=== PATIENT | male | born 1950 | race African-American/Black ===

== ENCOUNTER 2021-04-18 14:52 | Inpatient (IN) | payer MEDICAID, MEDICARE, OTHER ==
[~2021-04-18] VITALS: Ht 175.3 cm; Wt 103.4 kg
[~2021-04-18 14:52] MED LIST: ATOR20TA MT; BENA20TA77; COR6; FURO-151 MT; GLIP10TA10 MT; METF-817
[2021-04-18] MEDS ORDERED: VANCOMYCIN 1G PREMIX 200 ML IV ONE (15:45)
[2021-04-18] MEDS ORDERED: SODIUM CHLORIDE 0.9% 1000ML BAG (SEPSIS BOLUS) IV ONE (15:45)
[2021-04-18] MEDS ORDERED: PIPERACILLIN/TAZ 3.375G PREMIX 50 ML IV ONE (15:45)
[2021-04-18] MEDS ORDERED: VANCOMYCIN 1GM PMX (XELLIA) 200 ML IV NR (16:00)
[2021-04-18 16:28] LABS: MEAN CORPUSCULAR HEMOGLOBIN 26.6 pg (28.0-32.0); MEAN CORPUSCULAR VOLUME 83.2 fL (80.0-94.0); MEAN PLATELET VOLUME 7.7 fl (7.4-10.4); PLATELET 407 x1000/uL (130-400); RED BLOOD CELL COUNT 2.28 mill/uL (4.7-6.1); RED CELL DISTRIBUTION WIDTH 14.8 % (11.6-14.6)
[2021-04-18 16:31] LABS: HEMOGLOBIN. 6.1 g/dL (14.0-18.0)
[2021-04-18 16:34] LABS: CHLORIDE 98 mEq/L (98-107)
[2021-04-18 16:51] LABS: PLATELET ESTIMATE INCREASED
[2021-04-18] MEDS ORDERED: ADENOSINE 3 MG/ML 2ML VIAL IV ONE ×3 (17:00)
[2021-04-18] MEDS ORDERED: KCL 20MEQ/100ML PREMIX 100 ML IV ONE (17:00)
[2021-04-18] MEDS ORDERED: MIDAZOLAM HCL 2 MG/2 ML VIAL IV ONE (17:15)
[2021-04-18] MEDS ORDERED: ADENOSINE 3 MG/ML 2ML VIAL IV NR ×2 (17:30→17:37)
[2021-04-18] MEDS ORDERED: MIDAZOLAM HCL 2 MG/2 ML VIAL IV NR (17:30)
[2021-04-18 17:39] LABS: BG BASE EXCESS -3.1 mmol/L (-2.0-2.0); BG CARBOXYHEMOGLOBIN 1.3 % (0.5-1.5); BG DEOXYHEMOGLOBIN 3.2 % (0.0-5.0); BG FRACTION INSPIRED OXYGEN 21; BG HCO3 ACT 20.3 mmol/L (22.0-26.0); BG METHEMOGLOBIN 0.3 % (0.0-1.5); BG OXYGEN SATURATION 96.7 % (92.0-98.5); BG OXYHEMOGLOBIN 95.2 % (94.0-97.0); BG PCO2 29.2 mmHg (35.0-45.0); BG PO2 92.1 mmHg (75.0-100.0); BG SAMPLE SITE RIGHT RADIAL; BG TOTAL HEMOGLOBIN 6.7 g/dL (12.0-18.0); BG VENT MODE ROOM AIR
[2021-04-18 18:46] LABS: MEAN PLATELET VOLUME 7.7 fl (7.4-10.4); PLATELET 457 x1000/uL (130-400); RED BLOOD CELL COUNT 2.52 mill/uL (4.7-6.1)
[2021-04-18 18:50] LABS: HEMATOCRIT. 20.9 % (42.0-52.0); HEMOGLOBIN. 6.8 g/dL (14.0-18.0)
[2021-04-18 19:05] LABS: PLATELET ESTIMATE INCREASED
[2021-04-18 19:42] LABS: CLARITY URINE CLEAR (CLEAR); COLOR URINE YELLOW (YELLOW); KETONES URINE NEGATIVE (NEGATIVE); LEUKOCYTE ESTERASE URINE 2+ (NEGATIVE); NITRITE URINE NEGATIVE (NEGATIVE); OCCULT BLOOD URINE 1+ (NEGATIVE); PROTEIN URINE TRACE (NEGATIVE); SPECIFIC GRAVITY URINE 1.015 (1.005-1.030); UROBILINOGEN URINE 0.2 E.U./dL (0.2-1.0)
[2021-04-18 22:00] VITALS: BP 129/65
[2021-04-18 22:13] LABS: CHLORIDE 101 mEq/L (98-107)
[2021-04-19] VITALS (13 sets, daily range): BP systolic 97–116; BP diastolic 54–83
[2021-04-19] MEDS ORDERED: DEXTROSE 50% WATER 50ML SYRINGE IV PRN
[2021-04-19] MEDS ORDERED: METOPROLOL TARTRATE 50MG TABLET PO SCH
[2021-04-19] MEDS ORDERED: SODIUM CHL 0.45% + KCL 20MEQ/L 1,000 ML IV SCH (01:00)
[2021-04-19 01:46] LABS: HEMATOCRIT. 23.1 % (42.0-52.0); HEMOGLOBIN. 7.7 g/dL (14.0-18.0); MEAN CORPUSCULAR HEMOGLOBIN 27.3 pg (28.0-32.0); MEAN CORPUSCULAR VOLUME 81.8 fL (80.0-94.0); MEAN PLATELET VOLUME 7.8 fl (7.4-10.4); PLATELET 443 x1000/uL (130-400); RED BLOOD CELL COUNT 2.82 mill/uL (4.7-6.1); RED CELL DISTRIBUTION WIDTH 14.6 % (11.6-14.6)
[2021-04-19] MEDS ORDERED: POTASSIUM CHLORIDE INJ 40 MEQ in DEXT 5% WATER 250 ML IV SCH (02:00)
[2021-04-19] MEDS: PIPERACILLIN/TAZOBACTAM 3.375 G in DEXTROSE 5% WATER 50 ML IV SCH ×3 (05:13→21:20)
[2021-04-19] MEDS: BLOOD SUGAR DIAGNOSTIC STRIP TEST SCH ×4 (06:50→21:09)
[2021-04-19 07:06] LABS: BASOPHILS % 0.4 % (0.0-2.0); EOSINOPHILS % 0.1 % (0.0-5.0); HEMATOCRIT. 22.8 % (42.0-52.0); HEMOGLOBIN. 7.6 g/dL (14.0-18.0); MEAN CORPUSCULAR HEMOGLOBIN 27.5 pg (28.0-32.0); MEAN CORPUSCULAR VOLUME 82.1 fL (80.0-94.0); MEAN PLATELET VOLUME 7.8 fl (7.4-10.4); MONOCYTES % 2.5 % (2.0-8.0); PLATELET 454 x1000/uL (130-400); RED BLOOD CELL COUNT 2.78 mill/uL (4.7-6.1); RED CELL DISTRIBUTION WIDTH 14.4 % (11.6-14.6)
[2021-04-19] MEDS ORDERED: INSULIN LISPRO 100 UNITS/ML SUBCUT SCH (07:20)
[2021-04-19 07:31] LABS: CHLORIDE 104 mEq/L (98-107)
[2021-04-19 07:38] LABS: HDL CHOLESTEROL 11 mg/dL (40-59)
[2021-04-19 07:40] LABS: LDL CHOLESTEROL 22 mg/dL (5-100)
[2021-04-19 08:06] LABS: PLATELET ESTIMATE SLIGHTLY INCREASED
[2021-04-19] MEDS: METOPROLOL TARTRATE 50MG TABLET PO SCH ×2 (08:41→21:08)
[2021-04-19] MEDS ORDERED: PANTOPRAZOLE SODIUM 40 MG/VIAL IV SCH (09:00)
[2021-04-19] MEDS ORDERED: PNEUMOCOCCAL 23-VAL P-SAC VAC 0.5 ML IM ONE (12:00)
[2021-04-19] MEDS ORDERED: POTASSIUM CHLORIDE INJ 40 MEQ in DEXT 5% WATER 250 ML IV NR (12:00)
[2021-04-19] MEDS ORDERED: INFLUENZA VACCINE 05/PF 0.5 ML SYRINGE IM ONE (12:00)
[2021-04-19] MEDS ORDERED: IPRATROPIUM/ALBUTEROL 0.5-3(2.5)MG/3ML NEB HHN PRN (12:15)
[2021-04-19] MEDS ORDERED: BISACODYL 10MG SUPP PR PRN (12:15)
[2021-04-19] MEDS ORDERED: LORAZEPAM 2MG/ML CPJ IV PRN (12:15)
[2021-04-19] MEDS: VANCOMYCIN 750 MG in DEXT 5% WATER 250 ML IV SCH (12:17)
[2021-04-19] MEDS: INSULIN LISPRO 100 UNITS/ML SUBCUT SCH ×3 (12:18→21:14)
[2021-04-19] MEDS ORDERED: CHLO25TA2 MT (12:43)
[2021-04-19] MEDS ORDERED: DILT180C87 MT (12:43)
[2021-04-19] MEDS ORDERED: GABA-532 PO (12:43)
[2021-04-19] MEDS ORDERED: POTA-81 MT (12:43)
[2021-04-19] MEDS: SODIUM CHLORIDE 0.9% 1,000 ML IV SCH (15:27)
[2021-04-19] MEDS ORDERED: VANCOMYCIN 1,000 MG in DEXT 5% WATER 250 ML IV SCH (16:00)
[2021-04-19 16:53] LABS: INR 1.4; PROTHROMBIN TIME 14.9 sec (9.6-11.0)
[2021-04-19] MEDS ORDERED: KCL 20MEQ/100ML PREMIX 100 ML IV NR (17:00)
[2021-04-19 17:16] LABS: CREATINE KINASE MB FRACTION 1.9 ng/mL (0.5-3.6)
[2021-04-19 17:44] LABS: VITAMIN B12 SERUM 313 pg/mL (211-911)
[2021-04-19] MEDS: PANTOPRAZOLE SODIUM 40 MG/VIAL IV SCH (17:57)
[2021-04-19 19:08] LABS: HEPATITIS B SURFACE ANTIGEN NEGATIVE
[2021-04-19 19:51] LABS: FERRITIN 2843 ng/mL (22-322)
[2021-04-20] VITALS (20 sets, daily range): BP systolic 98–141; BP diastolic 51–73
[2021-04-20] MEDS: VANCOMYCIN 750 MG in DEXT 5% WATER 250 ML IV SCH ×2
[2021-04-20] MEDS: SODIUM CHLORIDE 0.9% 1,000 ML IV SCH (04:24)
[2021-04-20] MEDS: PIPERACILLIN/TAZOBACTAM 3.375 G in DEXTROSE 5% WATER 50 ML IV SCH ×3 (05:08→22:09)
[2021-04-20 07:04] LABS: HEMATOCRIT. 25.1 % (42.0-52.0); HEMOGLOBIN. 8.7 g/dL (14.0-18.0); MEAN CORPUSCULAR HEMOGLOBIN 28.6 pg (28.0-32.0); MEAN CORPUSCULAR VOLUME 82.5 fL (80.0-94.0); MEAN PLATELET VOLUME 7.6 fl (7.4-10.4); PLATELET 373 x1000/uL (130-400); RED BLOOD CELL COUNT 3.04 mill/uL (4.7-6.1); RED CELL DISTRIBUTION WIDTH 15.1 % (11.6-14.6)
[2021-04-20] MEDS: BLOOD SUGAR DIAGNOSTIC STRIP TEST SCH ×4 (07:12→20:24)
[2021-04-20 07:15] LABS: INR 1.4; PARTIAL THROMBOPLASTIN TIME 35.9 sec (23.4-31.0); PROTHROMBIN TIME 14.5 sec (9.6-11.0)
[2021-04-20] MEDS: INSULIN LISPRO 100 UNITS/ML SUBCUT SCH ×5 (07:58→22:27)
[2021-04-20] MEDS: PANTOPRAZOLE SODIUM 40 MG/VIAL IV SCH ×2 (08:11→17:45)
[2021-04-20] MEDS: METOPROLOL TARTRATE 50MG TABLET PO SCH ×2 (08:12→20:23)
[2021-04-20] MEDS ORDERED: POTASSIUM CHLORIDE 20MEQ TABLET SR PO SCH (09:00)
[2021-04-20] MEDS ORDERED: LIDOCAINE HCL 1% 20ML VIAL (Pyxis) INJ ONE (09:22)
[2021-04-20 09:30] LABS: CHLORIDE 103 mEq/L (98-107)
[2021-04-20] MEDS: VANCOMYCIN 750MG PREMIX 150 ML IV SCH (12:17)
[2021-04-20 14:30] LABS: NUCLEATED RED BLOOD CELLS 1 /100 WBC; PLATELET ESTIMATE NORMAL
[2021-04-20] MEDS ORDERED: POTASSIUM CHLORIDE 20MEQ TABLET SR PO NR (16:45)
[2021-04-20 16:49] LABS: FOLIC ACID (FOLATE) SERUM 4.9 ng/mL (>5.38)
[2021-04-20] MEDS: SODIUM CHL 0.9% + KCL 20MEQ/L 1,000 ML IV SCH (21:00)
[2021-04-20 21:24] LABS: BASOPHILS % 0.3 % (0.0-2.0); EOSINOPHILS % 0.2 % (0.0-5.0); HEMATOCRIT. 26.7 % (42.0-52.0); MEAN CORPUSCULAR HEMOGLOBIN 27.9 pg (28.0-32.0); MEAN CORPUSCULAR VOLUME 83.2 fL (80.0-94.0); MEAN PLATELET VOLUME 7.5 fl (7.4-10.4); MONOCYTES % 4.2 % (2.0-8.0); NEUTROPHILS % 84.3 % (40.0-76.0); PLATELET 364 x1000/uL (130-400); RED BLOOD CELL COUNT 3.21 mill/uL (4.7-6.1); RED CELL DISTRIBUTION WIDTH 14.9 % (11.6-14.6)
[2021-04-21] VITALS (15 sets, daily range): BP systolic 109–124; BP diastolic 59–82
[2021-04-21] MEDS: VANCOMYCIN 750MG PREMIX 150 ML IV SCH (00:52)
[2021-04-21] MEDS: SODIUM CHL 0.9% + KCL 20MEQ/L 1,000 ML IV SCH ×3 (03:29→17:08)
[2021-04-21] MEDS: PIPERACILLIN/TAZOBACTAM 3.375 G in DEXTROSE 5% WATER 50 ML IV SCH ×3 (05:29→21:27)
[2021-04-21] MEDS: BLOOD SUGAR DIAGNOSTIC STRIP TEST SCH ×4 (06:14→21:27)
[2021-04-21] MEDS: INSULIN LISPRO 100 UNITS/ML SUBCUT SCH ×4 (07:37→21:28)
[2021-04-21] MEDS ORDERED: ROCURONIUM BROMIDE 10MG/ML VIAL 5ML IV ONE (08:54)
[2021-04-21] MEDS ORDERED: FENTANYL CITRATE/PF 50MCG/ML 2ML VIAL ONE (08:54)
[2021-04-21] MEDS ORDERED: GLYCOPYRROLATE 0.2 MG/ML 2ML VIAL ONE (08:55)
[2021-04-21] MEDS ORDERED: MIDAZOLAM HCL 2 MG/2 ML VIAL ONE (08:55)
[2021-04-21] MEDS ORDERED: NEOSTIGMINE METHYLSULFATE 1MG/ML 10 ML VIAL ONE (08:55)
[2021-04-21] MEDS ORDERED: PROPOFOL 200MG/20ML VIAL IV ONE (08:55)
[2021-04-21 09:00] LABS: BASOPHILS % 0.6 % (0.0-2.0); EOSINOPHILS % 0.5 % (0.0-5.0); HEMATOCRIT. 26.6 % (42.0-52.0); HEMOGLOBIN. 8.9 g/dL (14.0-18.0); MEAN CORPUSCULAR HEMOGLOBIN 28.5 pg (28.0-32.0); MEAN CORPUSCULAR VOLUME 84.9 fL (80.0-94.0); MEAN PLATELET VOLUME 7.6 fl (7.4-10.4); MONOCYTES % 3.2 % (2.0-8.0); NEUTROPHILS % 86.7 % (40.0-76.0); PLATELET 334 x1000/uL (130-400); RED BLOOD CELL COUNT 3.13 mill/uL (4.7-6.1); RED CELL DISTRIBUTION WIDTH 14.8 % (11.6-14.6)
[2021-04-21] MEDS: PANTOPRAZOLE SODIUM 40 MG/VIAL IV SCH ×2 (09:00→17:08)
[2021-04-21] MEDS: METOPROLOL TARTRATE 50MG TABLET PO SCH ×2 (09:00→21:27)
[2021-04-21 09:10] LABS: INR 1.3; PROTHROMBIN TIME 14.1 sec (9.6-11.0)
[2021-04-21] MEDS ORDERED: DEXAMETHASONE 4MG/ML 1ML VIAL ONE (09:11)
[2021-04-21] MEDS ORDERED: ONDANSETRON HCL 4MG/2ML INJ ONE (09:11)
[2021-04-21] MEDS ORDERED: HYDROMORPHONE HCL/PF 2MG/ML (OR) ONE (09:12)
[2021-04-21 09:14] LABS: CHLORIDE 107 mEq/L (98-107)
[2021-04-21] MEDS ORDERED: POLYMYXIN B SULFATE 500000 UNITS/VIAL ONE (09:26)
[2021-04-21] MEDS ORDERED: MEPERIDINE HCL/PF 25MG/ML CPJ IV PRN (10:00)
[2021-04-21] MEDS ORDERED: HYDROMORPHONE HCL/PF 2MG/ML CPJ IV PRN (10:00)
[2021-04-21] MEDS ORDERED: ONDANSETRON HCL 4MG/2ML INJ IV PRN (10:00)
[2021-04-21] MEDS ORDERED: LABETALOL 5MG/ML SYR 20 MG/4 ML SYRINGE IV PRN (10:00)
[2021-04-21] MEDS: VANCOMYCIN 1GM PMX (XELLIA) 200 ML IV SCH (13:01)
[2021-04-21 14:06] LABS: BG BASE EXCESS -4.5 mmol/L (-2.0-2.0); BG CARBOXYHEMOGLOBIN 0.5 % (0.5-1.5); BG DEOXYHEMOGLOBIN 1.7 % (0.0-5.0); BG FRACTION INSPIRED OXYGEN 40; BG METHEMOGLOBIN 0.1 % (0.0-1.5); BG OXYGEN SATURATION 98.3 % (92.0-98.5); BG OXYHEMOGLOBIN 97.7 % (94.0-97.0); BG PCO2 46.5 mmHg (35.0-45.0); BG PH 7.293 (7.350-7.450); BG PO2 129.2 mmHg (75.0-100.0); BG SAMPLE SITE RIGHT RADIAL; BG TOTAL HEMOGLOBIN 11.5 g/dL (12.0-18.0); BG VENT MODE MASK - SIMPLE
[2021-04-21] MEDS ORDERED: SODIUM BICARBONATE 8.4% 1 MEQ/ML 50ML SYR IV NR (15:15)
[2021-04-21 17:59] LABS: BG BASE EXCESS -3.3 mmol/L (-2.0-2.0); BG CARBOXYHEMOGLOBIN 0.4 % (0.5-1.5); BG DEOXYHEMOGLOBIN 1.4 % (0.0-5.0); BG FRACTION INSPIRED OXYGEN 40; BG HCO3 ACT 21.1 mmol/L (22.0-26.0); BG METHEMOGLOBIN 0.3 % (0.0-1.5); BG OXYGEN SATURATION 98.6 % (92.0-98.5); BG OXYHEMOGLOBIN 97.9 % (94.0-97.0); BG PCO2 35.4 mmHg (35.0-45.0); BG PH 7.393 (7.350-7.450); BG PO2 142.9 mmHg (75.0-100.0); BG TOTAL HEMOGLOBIN 10.7 g/dL (12.0-18.0); BG VENT MODE MASK - BIPAP
[2021-04-22] VITALS (11 sets, daily range): BP systolic 106–121; BP diastolic 66–91
[2021-04-22] MEDS: VANCOMYCIN 1GM PMX (XELLIA) 200 ML IV SCH ×2 (00:21→11:58)
[2021-04-22] MEDS: SODIUM CHL 0.9% + KCL 20MEQ/L 1,000 ML IV SCH ×3 (02:38→22:57)
[2021-04-22] MEDS: PIPERACILLIN/TAZOBACTAM 3.375 G in DEXTROSE 5% WATER 50 ML IV SCH ×3 (05:58→21:52)
[2021-04-22] MEDS: MORPHINE SULFATE 2 MG/ML CPJ (NOT FOR IM USE) IV PRN (06:00)
[2021-04-22 06:28] LABS: HEMATOCRIT. 30.6 % (42.0-52.0); HEMOGLOBIN. 10.3 g/dL (14.0-18.0); MEAN CORPUSCULAR HEMOGLOBIN 28.4 pg (28.0-32.0); MEAN CORPUSCULAR VOLUME 84.3 fL (80.0-94.0); MEAN PLATELET VOLUME 7.6 fl (7.4-10.4); PLATELET 307 x1000/uL (130-400); RED BLOOD CELL COUNT 3.63 mill/uL (4.7-6.1); RED CELL DISTRIBUTION WIDTH 15.2 % (11.6-14.6)
[2021-04-22 06:39] LABS: CHLORIDE 107 mEq/L (98-107)
[2021-04-22] MEDS: BLOOD SUGAR DIAGNOSTIC STRIP TEST SCH ×4 (07:09→21:53)
[2021-04-22] MEDS: INSULIN LISPRO 100 UNITS/ML SUBCUT SCH ×4 (07:11→21:54)
[2021-04-22] MEDS: METOPROLOL TARTRATE 50MG TABLET PO SCH ×2 (08:54→21:53)
[2021-04-22] MEDS: PANTOPRAZOLE SODIUM 40 MG/VIAL IV SCH ×2 (08:54→17:01)
[2021-04-22 10:17] LABS: BG BASE EXCESS -4.1 mmol/L (-2.0-2.0); BG CARBOXYHEMOGLOBIN 0.2 % (0.5-1.5); BG DEOXYHEMOGLOBIN 2.8 % (0.0-5.0); BG FRACTION INSPIRED OXYGEN 21; BG HCO3 ACT 19.2 mmol/L (22.0-26.0); BG METHEMOGLOBIN 0.1 % (0.0-1.5); BG OXYGEN SATURATION 97.2 % (92.0-98.5); BG OXYHEMOGLOBIN 96.9 % (94.0-97.0); BG PCO2 29.7 mmHg (35.0-45.0); BG PH 7.429 (7.350-7.450); BG PO2 92.9 mmHg (75.0-100.0); BG SAMPLE SITE RIGHT RADIAL; BG TOTAL HEMOGLOBIN 11.5 g/dL (12.0-18.0); BG VENT MODE ROOM AIR
[2021-04-22] MEDS ORDERED: INSULIN GLARGINE UD 100 UNITS/ML SYR SUBCUT SCH (11:00)
[2021-04-22 18:18] LABS: PLATELET ESTIMATE NORMAL
[2021-04-22] MEDS: INSULIN GLARGINE UD 100 UNITS/ML SYR SUBCUT SCH (21:55)
[2021-04-23] VITALS (12 sets, daily range): BP systolic 107–163; BP diastolic 69–97
[2021-04-23] MEDS: VANCOMYCIN 1GM PMX (XELLIA) 200 ML IV SCH ×2 (00:20→11:03)
[2021-04-23 05:49] LABS: HEMATOCRIT 31.5 % (42.0-52.0); HEMOGLOBIN 10.4 g/dL (14.0-18.0); MEAN CORPUSCULAR VOLUME 84.8 fL (80.0-94.0); PLATELET 330 x1000/uL (130-400); RED BLOOD CELL COUNT 3.72 mill/uL (4.7-6.1); RED CELL DISTRIBUTION WIDTH 15.4 % (11.6-14.6)
[2021-04-23] MEDS: PIPERACILLIN/TAZOBACTAM 3.375 G in DEXTROSE 5% WATER 50 ML IV SCH ×3 (06:04→21:33)
[2021-04-23] MEDS: BLOOD SUGAR DIAGNOSTIC STRIP TEST SCH ×4 (06:04→21:14)
[2021-04-23 06:19] LABS: CHLORIDE 109 mEq/L (98-107)
[2021-04-23] MEDS: PANTOPRAZOLE SODIUM 40 MG/VIAL IV SCH ×2 (08:59→17:23)
[2021-04-23] MEDS: SODIUM CHL 0.9% + KCL 20MEQ/L 1,000 ML IV SCH ×2 (09:00→19:00)
[2021-04-23] MEDS: METOPROLOL TARTRATE 50MG TABLET PO SCH ×2 (09:00→21:35)
[2021-04-23] MEDS: INSULIN LISPRO 100 UNITS/ML SUBCUT SCH ×4 (09:01→21:36)
[2021-04-23] MEDS ORDERED: NALOXONE HCL 0.4MG/ML VIAL IV PRN (09:45)
[2021-04-23] MEDS ORDERED: SENNOSIDES 8.6MG TABLET PO PRN (10:00)
[2021-04-23] MEDS: FOLIC ACID/VITAMIN B COMP W-C TABLET PO SCH (10:57)
[2021-04-23] MEDS: DOCUSATE SODIUM 100MG CAPSULE PO SCH ×2 (10:57→17:23)
[2021-04-23] MEDS: INSULIN GLARGINE UD 100 UNITS/ML SYR SUBCUT SCH ×2 (10:58→21:37)
[2021-04-23 13:53] LABS: BG BASE EXCESS -6.7 mmol/L (-2.0-2.0); BG CARBOXYHEMOGLOBIN 0.6 % (0.5-1.5); BG DEOXYHEMOGLOBIN 9.1 % (0.0-5.0); BG FRACTION INSPIRED OXYGEN 21; BG HCO3 ACT 17.4 mmol/L (22.0-26.0); BG METHEMOGLOBIN 0.3 % (0.0-1.5); BG OXYGEN SATURATION 90.8 % (92.0-98.5); BG PCO2 30.9 mmHg (35.0-45.0); BG PH 7.369 (7.350-7.450); BG PO2 59.1 mmHg (75.0-100.0); BG SAMPLE SITE RIGHT RADIAL; BG TOTAL HEMOGLOBIN 12.7 g/dL (12.0-18.0); BG VENT MODE ROOM AIR
[2021-04-23] MEDS: MORPHINE SULFATE 2 MG/ML CPJ (NOT FOR IM USE) IV PRN (15:26)
[2021-04-23] MEDS ORDERED: BISACODYL 10MG SUPP PR NR (16:00)
[2021-04-23] MEDS ORDERED: SORBITOL 70% SOLN 30ML PO NR (16:00)
[2021-04-23] MEDS: FUROSEMIDE 40MG/4ML VIAL IVP SCH (17:23)
[2021-04-23] MEDS ORDERED: DILTIAZEM HCL 5MG/ML 5ML VIAL IV PRN (21:00)
[2021-04-24] VITALS (11 sets, daily range): BP systolic 105–135; BP diastolic 60–92
[2021-04-24] MEDS: VANCOMYCIN 1GM PMX (XELLIA) 200 ML IV SCH ×2 (00:56→12:33)
[2021-04-24] MEDS: SODIUM CHL 0.9% + KCL 20MEQ/L 1,000 ML IV SCH (03:29)
[2021-04-24] MEDS: BLOOD SUGAR DIAGNOSTIC STRIP TEST SCH ×4 (06:06→21:17)
[2021-04-24] MEDS: PIPERACILLIN/TAZOBACTAM 3.375 G in DEXTROSE 5% WATER 50 ML IV SCH ×3 (06:07→21:17)
[2021-04-24 06:42] LABS: HEMATOCRIT. 29.7 % (42.0-52.0); HEMOGLOBIN. 9.9 g/dL (14.0-18.0); MEAN CORPUSCULAR HEMOGLOBIN 28.3 pg (28.0-32.0); MEAN CORPUSCULAR VOLUME 84.8 fL (80.0-94.0); MEAN PLATELET VOLUME 7.4 fl (7.4-10.4); PLATELET 308 x1000/uL (130-400); RED CELL DISTRIBUTION WIDTH 15.2 % (11.6-14.6)
[2021-04-24 07:09] LABS: CHLORIDE 109 mEq/L (98-107)
[2021-04-24] MEDS: DOCUSATE SODIUM 100MG CAPSULE PO SCH ×2 (08:18→17:25)
[2021-04-24] MEDS: METOPROLOL TARTRATE 50MG TABLET PO SCH ×2 (08:19→21:17)
[2021-04-24] MEDS: FOLIC ACID/VITAMIN B COMP W-C TABLET PO SCH (08:19)
[2021-04-24] MEDS: PANTOPRAZOLE SODIUM 40 MG/VIAL IV SCH ×2 (08:19→17:30)
[2021-04-24] MEDS: FUROSEMIDE 40MG/4ML VIAL IVP SCH (08:19)
[2021-04-24] MEDS: INSULIN LISPRO 100 UNITS/ML SUBCUT SCH ×4 (08:21→21:20)
[2021-04-24] MEDS: MORPHINE SULFATE 2 MG/ML CPJ (NOT FOR IM USE) IV PRN (10:28)
[2021-04-24] MEDS: INSULIN GLARGINE UD 100 UNITS/ML SYR SUBCUT SCH ×2 (10:29→21:37)
[2021-04-24] MEDS ORDERED: MAGNESIUM 1 G PREMIX 100 ML IV NR (12:00)
[2021-04-24 12:34] LABS: NUCLEATED RED BLOOD CELLS 1 /100 WBC; PLATELET ESTIMATE NORMAL
[2021-04-24] MEDS: METOCLOPRAMIDE HCL 10MG/2ML VIAL IV SCH ×2 (12:34→17:25)
[2021-04-24 12:54] LABS: CHLORIDE 109 mEq/L (98-107)
[2021-04-24] MEDS ORDERED: POTASSIUM CHLORIDE INJ 40 MEQ in DEXT 5% WATER 250 ML IV ONE (15:30)
[2021-04-24] MEDS ORDERED: BISACODYL 10MG SUPP PR NR (15:45)
[2021-04-24] MEDS ORDERED: POTASSIUM CHLORIDE 20MEQ/PACKET PO NR (15:45)
[2021-04-24] MEDS ORDERED: SORBITOL 70% SOLN 30ML PO NR (15:45)
[2021-04-24] MEDS: KCL 20MEQ/100ML X 2 FOR TOTAL KCL 40MEQ/200ML IV SCH ×2 (17:28→21:17)
[2021-04-25] VITALS (29 sets, daily range): BP systolic 100–128; BP diastolic 63–92
[2021-04-25] MEDS: METOCLOPRAMIDE HCL 10MG/2ML VIAL IV SCH ×4 (00:56→18:00)
[2021-04-25] MEDS: SODIUM CHL 0.9% + KCL 20MEQ/L 1,000 ML IV SCH ×2 (02:39→19:16)
[2021-04-25] MEDS ORDERED: BUPIVACAINE HCL/PF 0.5% (5MG/ML) 10ML ONE (06:36)
[2021-04-25] MEDS ORDERED: LIDOCAINE HCL 1% 20ML VIAL (Pyxis) INJ ONE (06:36)
[2021-04-25] MEDS ORDERED: SKIN ADHESIVE 0.7 GM EA TOP ONE (06:36)
[2021-04-25] MEDS ORDERED: POLYMYXIN B SULFATE 500000 UNITS/VIAL ONE (06:36)
[2021-04-25] MEDS: PIPERACILLIN/TAZOBACTAM 3.375 G in DEXTROSE 5% WATER 50 ML IV SCH ×3 (07:00→21:58)
[2021-04-25] MEDS: BLOOD SUGAR DIAGNOSTIC STRIP TEST SCH ×4 (07:01→21:54)
[2021-04-25] MEDS: INSULIN LISPRO 100 UNITS/ML SUBCUT SCH ×4 (07:20→21:59)
[2021-04-25] MEDS ORDERED: MIDAZOLAM HCL 2 MG/2 ML VIAL ONE ×2 (07:48→08:59)
[2021-04-25] MEDS ORDERED: FENTANYL CITRATE/PF 50MCG/ML 2ML VIAL ONE (07:48)
[2021-04-25] MEDS ORDERED: ONDANSETRON HCL 4MG/2ML INJ ONE (07:48)
[2021-04-25] MEDS ORDERED: DEXAMETHASONE 4MG/ML 1ML VIAL ONE (07:49)
[2021-04-25] MEDS ORDERED: ROCURONIUM BROMIDE 10MG/ML VIAL 5ML IV ONE (07:49)
[2021-04-25] MEDS ORDERED: PROPOFOL 200MG/20ML VIAL IV ONE (07:49)
[2021-04-25] MEDS ORDERED: GLYCOPYRROLATE 0.2 MG/ML 2ML VIAL ONE (07:49)
[2021-04-25] MEDS ORDERED: NEOSTIGMINE METHYLSULFATE 1MG/ML 10 ML VIAL ONE (07:49)
[2021-04-25] MEDS ORDERED: ONDANSETRON HCL 4MG/2ML INJ IV PRN (08:00)
[2021-04-25] MEDS ORDERED: HYDROMORPHONE HCL/PF 2MG/ML CPJ IV PRN (08:00)
[2021-04-25] MEDS ORDERED: LABETALOL 5MG/ML SYR 20 MG/4 ML SYRINGE IV PRN (08:00)
[2021-04-25] MEDS ORDERED: MEPERIDINE HCL/PF 25MG/ML CPJ IV PRN (08:00)
[2021-04-25] MEDS ORDERED: PROPOFOL 10MG/ML 100ML 100 ML IV ONE (08:28)
[2021-04-25] MEDS ORDERED: HYDROMORPHONE HCL/PF 2MG/ML (OR) ONE (08:29)
[2021-04-25] MEDS: PANTOPRAZOLE SODIUM 40 MG/VIAL IV SCH ×2 (09:00→17:00)
[2021-04-25] MEDS: METOPROLOL TARTRATE 50MG TABLET PO SCH ×2 (09:00→21:58)
[2021-04-25] MEDS: FUROSEMIDE 40MG/4ML VIAL IVP SCH (09:00)
[2021-04-25] MEDS: DOCUSATE SODIUM 100MG CAPSULE PO SCH ×2 (09:00→17:00)
[2021-04-25] MEDS: FOLIC ACID/VITAMIN B COMP W-C TABLET PO SCH (09:00)
[2021-04-25 09:53] LABS: BG BASE EXCESS -5.4 mmol/L (-2.0-2.0); BG CARBOXYHEMOGLOBIN 0.2 % (0.5-1.5); BG DEOXYHEMOGLOBIN 1.1 % (0.0-5.0); BG FRACTION INSPIRED OXYGEN 100; BG HCO3 ACT 22.8 mmol/L (22.0-26.0); BG METHEMOGLOBIN 0.3 % (0.0-1.5); BG OXYGEN SATURATION 98.9 % (92.0-98.5); BG OXYHEMOGLOBIN 98.4 % (94.0-97.0); BG PH 7.198 (7.350-7.450); BG PO2 194.1 mmHg (75.0-100.0); BG SAMPLE SITE RIGHT RADIAL; BG TOTAL HEMOGLOBIN 9.4 g/dL (12.0-18.0); BG VENT MODE VENT - AC
[2021-04-25] MEDS: INSULIN GLARGINE UD 100 UNITS/ML SYR SUBCUT SCH ×2 (10:00→21:59)
[2021-04-25] MEDS ORDERED: CEFAZOLIN SODIUM 1000MG/VIAL ONE (11:00)
[2021-04-25] MEDS ORDERED: VECURONIUM BROMIDE 10 MG/VIAL IV ONE (11:00)
[2021-04-25] MEDS ORDERED: CALCIUM CHLORIDE 1GM/10ML SYR IV ONE (11:03)
[2021-04-25] MEDS ORDERED: GENTAMICIN SULF 40MG/ML 2ML VIAL ONE (11:07)
[2021-04-25 11:16] LABS: BG BASE EXCESS -5.5 mmol/L (-2.0-2.0); BG DEOXYHEMOGLOBIN 0.9 % (0.0-5.0); BG FRACTION INSPIRED OXYGEN 80; BG HCO3 ACT 20.4 mmol/L (22.0-26.0); BG METHEMOGLOBIN 0.2 % (0.0-1.5); BG OXYGEN SATURATION 99.1 % (92.0-98.5); BG OXYHEMOGLOBIN 98.9 % (94.0-97.0); BG PCO2 41.5 mmHg (35.0-45.0); BG PH 7.309 (7.350-7.450); BG PO2 184.4 mmHg (75.0-100.0); BG SAMPLE SITE RIGHT RADIAL; BG TOTAL HEMOGLOBIN 10.9 g/dL (12.0-18.0); BG TOTAL RESPIRATORY RATE 18 b/min; BG VENT MODE VENT - AC
[2021-04-25] MEDS: DILTIAZEM HCL 5MG/ML 5ML VIAL IV PRN ×2 (12:10→12:23)
[2021-04-25] MEDS ORDERED: SODIUM BICARBONATE 8.4% 1 MEQ/ML 50ML SYR IV NR (12:30)
[2021-04-25] MEDS ORDERED: PHENYLEPHRINE 50 MG in DEXT 5% WATER 245 ML IV PRN (13:30)
[2021-04-25] MEDS ORDERED: DIGOXIN 500MCG/2ML AMP IV NR (13:30)
[2021-04-25 14:16] LABS: HEMATOCRIT. 28.3 % (42.0-52.0); HEMOGLOBIN. 9.3 g/dL (14.0-18.0); MEAN CORPUSCULAR HEMOGLOBIN 27.9 pg (28.0-32.0); MEAN CORPUSCULAR VOLUME 85.1 fL (80.0-94.0); MEAN PLATELET VOLUME 7.3 fl (7.4-10.4); PLATELET 326 x1000/uL (130-400); RED BLOOD CELL COUNT 3.32 mill/uL (4.7-6.1); RED CELL DISTRIBUTION WIDTH 15.6 % (11.6-14.6)
[2021-04-25 14:18] LABS: CHLORIDE 111 mEq/L (98-107)
[2021-04-25 15:06] LABS: PLATELET ESTIMATE NORMAL
[2021-04-25] MEDS ORDERED: MAGNESIUM 2 G PREMIX 50 ML IV NR (16:00)
[2021-04-25] MEDS: MORPHINE SULFATE 2 MG/ML CPJ (NOT FOR IM USE) IV PRN (19:45)
[2021-04-25 21:33] LABS: BG BASE EXCESS -0.9 mmol/L (-2.0-2.0); BG CARBOXYHEMOGLOBIN 0.3 % (0.5-1.5); BG DEOXYHEMOGLOBIN 1.6 % (0.0-5.0); BG FRACTION INSPIRED OXYGEN 30; BG HCO3 ACT 22.4 mmol/L (22.0-26.0); BG METHEMOGLOBIN 0.1 % (0.0-1.5); BG OXYGEN SATURATION 98.4 % (92.0-98.5); BG PH 7.463 (7.350-7.450); BG SAMPLE SITE RIGHT RADIAL; BG TOTAL HEMOGLOBIN 9.9 g/dL (12.0-18.0); BG VENT MODE VENT - CPAP
[2021-04-26] VITALS (67 sets, daily range): BP systolic 103–164; BP diastolic 65–109
[2021-04-26] MEDS: METOCLOPRAMIDE HCL 10MG/2ML VIAL IV SCH ×4 (00:08→18:35)
[2021-04-26] MEDS: MORPHINE SULFATE 2 MG/ML CPJ (NOT FOR IM USE) IV PRN ×4 (00:09→23:39)
[2021-04-26 05:44] LABS: HEMATOCRIT. 28.9 % (42.0-52.0); HEMOGLOBIN. 9.5 g/dL (14.0-18.0); MEAN CORPUSCULAR HEMOGLOBIN 28.1 pg (28.0-32.0); MEAN CORPUSCULAR VOLUME 85.7 fL (80.0-94.0); MEAN PLATELET VOLUME 7.8 fl (7.4-10.4); PLATELET 349 x1000/uL (130-400); RED BLOOD CELL COUNT 3.37 mill/uL (4.7-6.1); RED CELL DISTRIBUTION WIDTH 15.7 % (11.6-14.6)
[2021-04-26 06:00] LABS: CHLORIDE 112 mEq/L (98-107)
[2021-04-26] MEDS: BLOOD SUGAR DIAGNOSTIC STRIP TEST SCH ×4 (06:31→21:50)
[2021-04-26] MEDS: PIPERACILLIN/TAZOBACTAM 3.375 G in DEXTROSE 5% WATER 50 ML IV SCH ×3 (06:33→21:35)
[2021-04-26] MEDS: INSULIN LISPRO 100 UNITS/ML SUBCUT SCH ×4 (06:34→21:56)
[2021-04-26] MEDS: FOLIC ACID/VITAMIN B COMP W-C TABLET PO SCH (09:33)
[2021-04-26] MEDS: METOPROLOL TARTRATE 50MG TABLET PO SCH ×2 (09:33→21:36)
[2021-04-26] MEDS: DOCUSATE SODIUM 100MG CAPSULE PO SCH ×2 (09:33→18:32)
[2021-04-26] MEDS: FUROSEMIDE 40MG/4ML VIAL IVP SCH (09:33)
[2021-04-26] MEDS: PANTOPRAZOLE SODIUM 40 MG/VIAL IV SCH ×2 (09:33→18:32)
[2021-04-26] MEDS: INSULIN GLARGINE UD 100 UNITS/ML SYR SUBCUT SCH ×2 (09:57→22:00)
[2021-04-26 10:11] LABS: BG BASE EXCESS 0.9 mmol/L (-2.0-2.0); BG CARBOXYHEMOGLOBIN 0.3 % (0.5-1.5); BG DEOXYHEMOGLOBIN 1.7 % (0.0-5.0); BG FRACTION INSPIRED OXYGEN 30; BG HCO3 ACT 24.5 mmol/L (22.0-26.0); BG METHEMOGLOBIN 0.1 % (0.0-1.5); BG OXYGEN SATURATION 98.3 % (92.0-98.5); BG OXYHEMOGLOBIN 97.9 % (94.0-97.0); BG PH 7.463 (7.350-7.450); BG PO2 117.2 mmHg (75.0-100.0); BG SAMPLE SITE RIGHT RADIAL; BG VENT MODE VENT - CPAP
[2021-04-26] MEDS: SODIUM CHL 0.9% + KCL 20MEQ/L 1,000 ML IV SCH (12:22)
[2021-04-26 16:26] LABS: PLATELET ESTIMATE NORMAL
[2021-04-27] VITALS (38 sets, daily range): BP systolic 108–144; BP diastolic 64–89
[2021-04-27] MEDS: METOCLOPRAMIDE HCL 10MG/2ML VIAL IV SCH ×4 (05:10→17:35)
[2021-04-27] MEDS ORDERED: THROAT LOZENGES-BENZOCAINE/MENTH/CETYLPYRD CL LOZENGES MM PRN (05:15)
[2021-04-27 05:49] LABS: BASOPHILS % 0.1 % (0.0-2.0); EOSINOPHILS % 1.3 % (0.0-5.0); LYMPHOCYTES % 7.6 % (20.0-50.0); MEAN CORPUSCULAR HEMOGLOBIN 27.3 pg (28.0-32.0); MEAN CORPUSCULAR VOLUME 85.2 fL (80.0-94.0); MEAN PLATELET VOLUME 7.3 fl (7.4-10.4); MONOCYTES % 6.9 % (2.0-8.0); NEUTROPHILS % 84.1 % (40.0-76.0); PLATELET 385 x1000/uL (130-400); RED BLOOD CELL COUNT 3.29 mill/uL (4.7-6.1); RED CELL DISTRIBUTION WIDTH 15.7 % (11.6-14.6)
[2021-04-27] MEDS: INSULIN LISPRO 100 UNITS/ML SUBCUT SCH ×3 (05:51→17:36)
[2021-04-27] MEDS: BLOOD SUGAR DIAGNOSTIC STRIP TEST SCH ×3 (05:51→16:30)
[2021-04-27] MEDS: PIPERACILLIN/TAZOBACTAM 3.375 G in DEXTROSE 5% WATER 50 ML IV SCH ×2 (05:52→15:01)
[2021-04-27 06:14] LABS: CHLORIDE 112 mEq/L (98-107)
[2021-04-27] MEDS: SODIUM CHL 0.9% + KCL 20MEQ/L 1,000 ML IV SCH (09:28)
[2021-04-27] MEDS: DOCUSATE SODIUM 100MG CAPSULE PO SCH ×2 (09:29→17:35)
[2021-04-27] MEDS: FUROSEMIDE 40MG/4ML VIAL IVP SCH (09:29)
[2021-04-27] MEDS: PANTOPRAZOLE SODIUM 40 MG/VIAL IV SCH ×2 (09:29→17:35)
[2021-04-27] MEDS: METOPROLOL TARTRATE 50MG TABLET PO SCH (09:29)
[2021-04-27] MEDS: FOLIC ACID/VITAMIN B COMP W-C TABLET PO SCH (09:29)
[2021-04-27] MEDS: INSULIN GLARGINE UD 100 UNITS/ML SYR SUBCUT SCH (10:38)
[2021-04-27] MEDS ORDERED: INFLUENZA VACCINE 05/PF 0.5 ML SYRINGE IM ONE (14:45)
[2021-04-27] MEDS ORDERED: PNEUMOCOCCAL 23-VAL P-SAC VAC 0.5 ML IM ONE (14:45)
[2021-04-27] MEDS: MORPHINE SULFATE 2 MG/ML CPJ (NOT FOR IM USE) IV PRN (19:53)
[2021-04-27] MEDS ORDERED: METOPROLOL TARTRATE 25MG TABLET PO SCH (21:00)
[2021-04-28] MEDS ORDERED: ZINC SULFATE 220 MG ( 50 ) CAPSULE PO SCH (09:00)
[2021-04-28] MEDS ORDERED: ASCORBIC ACID 500 MG TABLET PO SCH (09:00)
== END 2021-04-27 20:10 | DRG 853 ==
LOC: ER 14:52 → 3WST 17:57 → ENRESERV 20:31 → MICUNO 04-25 17:38 → MICUSO 04-27 03:43
PROVIDERS: ADMIT Internal Medicine; ATTEND Internal Medicine
PROC: 30233N1 Transfusion of Nonautologous Red Blood Cells into Peripheral Vein, Percutaneous Approach (ICD-10-PCS; 2021-04-18)
PROC: 02HV33Z Insertion of Infusion Device into Superior Vena Cava, Percutaneous Approach (ICD-10-PCS; 2021-04-20)
PROC: B548ZZA Ultrasonography of Superior Vena Cava, Guidance (ICD-10-PCS; 2021-04-20)
PROC: 30233K1 Transfusion of Nonautologous Frozen Plasma into Peripheral Vein, Percutaneous Approach (ICD-10-PCS; 2021-04-20)
PROC: 0QB20ZZ Excision of Right Pelvic Bone, Open Approach (ICD-10-PCS; principal; 2021-04-21)
PROC: 5A09457 Assistance with Respiratory Ventilation, 24-96 Consecutive Hours, Continuous Positive Airway Pressure (ICD-10-PCS; 2021-04-21)
PROC: 0KBG0ZZ Excision of Left Trunk Muscle, Open Approach (ICD-10-PCS; 2021-04-25)
PROC: 5A1945Z Respiratory Ventilation, 24-96 Consecutive Hours (ICD-10-PCS; 2021-04-25)
PROC: 0KBF0ZZ Excision of Right Trunk Muscle, Open Approach (ICD-10-PCS; 2021-04-25)
PROC: 0BH17EZ Insertion of Endotracheal Airway into Trachea, Via Natural or Artificial Opening (ICD-10-PCS; 2021-04-25)
DX: A41.51 Sepsis due to Escherichia coli [E. coli] (principal); G93.41 Metabolic encephalopathy; I50.33 Acute on chronic diastolic (congestive) heart failure; A48.0 Gas gangrene; J96.00 Acute respiratory failure, unspecified whether with hypoxia or hypercapnia; E11.52 Type 2 diabetes mellitus with diabetic peripheral angiopathy with gangrene; E87.1 Hypo-osmolality and hyponatremia; N39.0 Urinary tract infection, site not specified; I42.9 Cardiomyopathy, unspecified; D68.9 Coagulation defect, unspecified; L97.119 Non-pressure chronic ulcer of right thigh with unspecified severity; K56.0 Paralytic ileus; K57.92 Diverticulitis of intestine, part unspecified, without perforation or abscess without bleeding; L97.828 Non-pressure chronic ulcer of other part of left lower leg with other specified severity; L89.319 Pressure ulcer of right buttock, unspecified stage; E66.9 Obesity, unspecified; E87.6 Hypokalemia; I44.7 Left bundle-branch block, unspecified; E78.5 Hyperlipidemia, unspecified; E11.65 Type 2 diabetes mellitus with hyperglycemia; D50.9 Iron deficiency anemia, unspecified; L98.429 Non-pressure chronic ulcer of back with unspecified severity; I48.0 Paroxysmal atrial fibrillation; D63.8 Anemia in other chronic diseases classified elsewhere; R74.01 Elevation of levels of liver transaminase levels; F10.10 Alcohol abuse, uncomplicated; Y90.9 Presence of alcohol in blood, level not specified; I25.10 Atherosclerotic heart disease of native coronary artery without angina pectoris; M47.9 Spondylosis, unspecified; J43.9 Emphysema, unspecified; Z20.822 Contact with and (suspected) exposure to COVID-19; I11.0 Hypertensive heart disease with heart failure; R16.0 Hepatomegaly, not elsewhere classified; E53.8 Deficiency of other specified B group vitamins; J84.10 Pulmonary fibrosis, unspecified; N20.0 Calculus of kidney; N28.1 Cyst of kidney, acquired; M48.061 Spinal stenosis, lumbar region without neurogenic claudication; Z79.84 Long term (current) use of oral hypoglycemic drugs; Z79.899 Other long term (current) drug therapy; Z87.891 Personal history of nicotine dependence; Z99.3 Dependence on wheelchair; I25.2 Old myocardial infarction; Z79.82 Long term (current) use of aspirin; R62.7 Adult failure to thrive; Z68.33 Body mass index [BMI] 33.0-33.9, adult; B95.2 Enterococcus as the cause of diseases classified elsewhere; M89.9 Disorder of bone, unspecified
CPT/HCPCS: 36415; 36600; 71045; 71250; 72131; 74018; 74176; 76700; 76937; 80048; 80053; 80061; 80076; 80202; 81003; 82010; 82140; 82270; 82375; 82378; 82550; 82553; 82607; 82728; 82746; 82805; 82962; 83036; 83540; 83550; 83605; 83735; 83880; 84132; 84145; 84439; 84443; 84484; 85025; 85027; 85044; 85379; 85651; 86140; 86705; 86709; 86803; 86850; 86900; 86920; 86927; 87070; 87075; 87077; 87186; 87340; 87426; 88305; 88311; 90686; 90732; 92610; 93005; 93306; 93970; 93976; 94640; 94660; 99291; A6261; C1725; C9113; J0153; J0690; J1100; J1160; J1170; J1580; J1815; J1940; J2175; J2250; J2270; J2370; J2405; J2543; J2704; J2710; J2765; J3010; J3370; J3475; J3480; J3490; J7030; J7040; J7060; P9016; P9017

== ENCOUNTER 2021-08-10 15:08 | Inpatient (IN) | payer MEDICARE, MEDICAID ==
[~2021-08-10] VITALS: Ht 175.3 cm; Wt 62.7 kg
[~2021-08-10 15:08] MED LIST changes: -BENA20TA77; +DILT180C87 MT; +GABA-532 PO
[2021-08-10] MEDS ORDERED: PIPERACILLIN/TAZ 3.375G PREMIX 50 ML IV ONE (18:15)
[2021-08-10] MEDS ORDERED: SODIUM CHLORIDE 0.9% 1000ML BAG (SEPSIS BOLUS) IV ONE (18:15)
[2021-08-10 18:29] LABS: CHLORIDE 101 mEq/L (98-107); HEMATOCRIT. 22.8 % (42.0-52.0); MEAN CORPUSCULAR HEMOGLOBIN 23.7 pg (28.0-32.0); MEAN CORPUSCULAR VOLUME 78.6 fL (80.0-94.0); MEAN PLATELET VOLUME 6.3 fl (7.4-10.4); PLATELET 533 x1000/uL (130-400)
[2021-08-10 18:37] LABS: HEMOGLOBIN. 6.9 g/dL (14.0-18.0)
[2021-08-10 19:10] LABS: PLATELET ESTIMATE INCREASED
[2021-08-10] MEDS ORDERED: KETOROLAC 15MG/ML VIAL IV ONE (19:45)
[2021-08-11] VITALS (11 sets, daily range): BP systolic 92–116; BP diastolic 61–74
[2021-08-11] MEDS ORDERED: ONDANSETRON HCL 4MG/2ML INJ IV PRN (03:45)
[2021-08-11] MEDS ORDERED: HYDROCODONE/ACETAMINOPHEN 5/325MG TABLET PO PRN (03:45)
[2021-08-11] MEDS ORDERED: DEXTROSE 50% WATER 50ML SYRINGE IV PRN (03:45)
[2021-08-11] MEDS ORDERED: ACETAMINOPHEN 325MG TABLET PO PRN (03:45)
[2021-08-11] MEDS ORDERED: NALOXONE HCL 0.4 MG/ML 1ML VIAL IV PRN (05:15)
[2021-08-11] MEDS: PIPERACILLIN/TAZOBACTAM 3.375 G in DEXTROSE 5% WATER 50 ML IV SCH ×3 (05:48→21:45)
[2021-08-11] MEDS: INSULIN LISPRO 100 UNITS/ML SUBCUT SCH ×4 (07:55→20:45)
[2021-08-11] MEDS: BLOOD SUGAR DIAGNOSTIC STRIP TEST SCH ×4 (07:55→20:46)
[2021-08-11 08:22] LABS: BASOPHILS % 0.4 % (0.0-2.0); EOSINOPHILS % 0.7 % (0.0-5.0); HEMATOCRIT. 22.3 % (42.0-52.0); HEMOGLOBIN. 7.2 g/dL (14.0-18.0); LYMPHOCYTES % 7.1 % (20.0-50.0); MEAN CORPUSCULAR HEMOGLOBIN 25.2 pg (28.0-32.0); MEAN CORPUSCULAR VOLUME 78.3 fL (80.0-94.0); MEAN PLATELET VOLUME 6.2 fl (7.4-10.4); MONOCYTES % 8.1 % (2.0-8.0); NEUTROPHILS % 83.7 % (40.0-76.0); PLATELET 388 x1000/uL (130-400); RED BLOOD CELL COUNT 2.85 mill/uL (4.7-6.1); RED CELL DISTRIBUTION WIDTH 18.2 % (11.6-14.6)
[2021-08-11 08:51] LABS: CHLORIDE 103 mEq/L (98-107)
[2021-08-11] MEDS: CARVEDILOL 6.25 MG TABLET PO SCH ×2 (08:51→20:46)
[2021-08-11] MEDS: DILTIAZEM HCL 180MG CAPSULE CD 24HR PO SCH (08:51)
[2021-08-11] MEDS: HEPARIN 5000 UNITS/ML VIAL SUBCUT SCH ×2 (08:59→20:45)
[2021-08-11] MEDS: GABAPENTIN 300MG CAPSULE PO SCH ×3 (08:59→20:46)
[2021-08-11] MEDS: FUROSEMIDE 40MG TABLET PO SCH (08:59)
[2021-08-11] MEDS ORDERED: POTASSIUM CHLORIDE 20MEQ TABLET SR PO ONE ×2 (09:15→13:15)
[2021-08-11] MEDS: ATORVASTATIN CALCIUM 20MG TABLET PO SCH (20:44)
[2021-08-11] MEDS ORDERED: MAGNESIUM 4 G PREMIX 100 ML IV NR (21:00)
[2021-08-12] VITALS (13 sets, daily range): BP systolic 91–107; BP diastolic 56–73
[2021-08-12] MEDS: PIPERACILLIN/TAZOBACTAM 3.375 G in DEXTROSE 5% WATER 50 ML IV SCH ×3 (05:07→21:34)
[2021-08-12] MEDS: GABAPENTIN 300MG CAPSULE PO SCH ×3 (05:12→21:34)
[2021-08-12 06:27] LABS: CHLORIDE 103 mEq/L (98-107)
[2021-08-12 06:36] LABS: BASOPHILS % 0.4 % (0.0-2.0); EOSINOPHILS % 1.7 % (0.0-5.0); HEMATOCRIT. 24.8 % (42.0-52.0); HEMOGLOBIN. 7.8 g/dL (14.0-18.0); LYMPHOCYTES % 11.7 % (20.0-50.0); MEAN CORPUSCULAR HEMOGLOBIN 24.8 pg (28.0-32.0); MEAN PLATELET VOLUME 6.6 fl (7.4-10.4); MONOCYTES % 7.8 % (2.0-8.0); NEUTROPHILS % 78.4 % (40.0-76.0); PLATELET 436 x1000/uL (130-400); RED BLOOD CELL COUNT 3.14 mill/uL (4.7-6.1); RED CELL DISTRIBUTION WIDTH 17.8 % (11.6-14.6)
[2021-08-12 06:51] LABS: PHOSPHORUS 1.3 mg/dL (2.5-4.9)
[2021-08-12] MEDS: INSULIN LISPRO 100 UNITS/ML SUBCUT SCH ×4 (08:00→21:48)
[2021-08-12] MEDS: BLOOD SUGAR DIAGNOSTIC STRIP TEST SCH ×4 (08:22→21:34)
[2021-08-12] MEDS: DILTIAZEM HCL 180MG CAPSULE CD 24HR PO SCH (08:23)
[2021-08-12] MEDS: CARVEDILOL 6.25 MG TABLET PO SCH ×2 (08:24→21:00)
[2021-08-12] MEDS: HEPARIN 5000 UNITS/ML VIAL SUBCUT SCH ×2 (08:52→21:35)
[2021-08-12] MEDS: FUROSEMIDE 40MG TABLET PO SCH (08:52)
[2021-08-12] MEDS ORDERED: POTASSIUM PHOS,M-BASIC-D-BASIC 20 MMOL in DEXT 5% WATER 243.3333 ML IV NR (18:30)
[2021-08-12] MEDS: ATORVASTATIN CALCIUM 20MG TABLET PO SCH (21:34)
[2021-08-13] VITALS (11 sets, daily range): BP systolic 90–125; BP diastolic 59–72
[2021-08-13] MEDS: PIPERACILLIN/TAZOBACTAM 3.375 G in DEXTROSE 5% WATER 50 ML IV SCH ×3 (05:53→22:10)
[2021-08-13] MEDS: GABAPENTIN 300MG CAPSULE PO SCH ×3 (05:53→22:10)
[2021-08-13] MEDS: BLOOD SUGAR DIAGNOSTIC STRIP TEST SCH ×4 (07:30→21:00)
[2021-08-13] MEDS: INSULIN LISPRO 100 UNITS/ML SUBCUT SCH ×4 (08:00→21:00)
[2021-08-13] MEDS: DILTIAZEM HCL 180MG CAPSULE CD 24HR PO SCH (09:00)
[2021-08-13] MEDS: FUROSEMIDE 40MG TABLET PO SCH (09:00)
[2021-08-13] MEDS: CARVEDILOL 6.25 MG TABLET PO SCH ×2 (09:00→21:00)
[2021-08-13] MEDS: HEPARIN 5000 UNITS/ML VIAL SUBCUT SCH ×2 (11:24→21:00)
[2021-08-13] MEDS: ATORVASTATIN CALCIUM 20MG TABLET PO SCH (21:00)
[2021-08-13 23:16] LABS: TOTAL IRON BINDING CAPACITY 282 ug/dL (250-450)
[2021-08-13 23:43] LABS: FOLIC ACID (FOLATE) SERUM 5.8 ng/mL (>5.38)
[2021-08-14] VITALS (14 sets, daily range): BP systolic 81–109; BP diastolic 48–78
[2021-08-14] MEDS: GABAPENTIN 300MG CAPSULE PO SCH ×3 (06:00→21:23)
[2021-08-14] MEDS: PIPERACILLIN/TAZOBACTAM 3.375 G in DEXTROSE 5% WATER 50 ML IV SCH ×3 (07:01→21:23)
[2021-08-14] MEDS ORDERED: BUPIVACAINE HCL/PF 0.5% (5MG/ML) 30ML ONE (07:02)
[2021-08-14] MEDS ORDERED: BACITRACIN 15GM TUBE TOP ONE ×2 (07:02→07:03)
[2021-08-14] MEDS ORDERED: LIDOCAINE HCL 1% 50ML VIAL (10MG/ML) ONE ×2 (07:02→09:59)
[2021-08-14] MEDS ORDERED: POLYMYXIN B SULFATE 500000 UNITS/VIAL ONE (07:04)
[2021-08-14] MEDS: BLOOD SUGAR DIAGNOSTIC STRIP TEST SCH ×4 (07:30→21:23)
[2021-08-14] MEDS: INSULIN LISPRO 100 UNITS/ML SUBCUT SCH ×4 (08:00→21:39)
[2021-08-14 08:35] LABS: BASOPHILS % 0.9 % (0.0-2.0); EOSINOPHILS % 1.7 % (0.0-5.0); HEMATOCRIT. 27.9 % (42.0-52.0); HEMOGLOBIN. 8.6 g/dL (14.0-18.0); LYMPHOCYTES % 13.9 % (20.0-50.0); MEAN CORPUSCULAR VOLUME 80.6 fL (80.0-94.0); MONOCYTES % 8.4 % (2.0-8.0); NEUTROPHILS % 75.1 % (40.0-76.0); RED BLOOD CELL COUNT 3.46 mill/uL (4.7-6.1); RED CELL DISTRIBUTION WIDTH 17.4 % (11.6-14.6)
[2021-08-14 08:46] LABS: CHLORIDE 104 mEq/L (98-107)
[2021-08-14] MEDS: FUROSEMIDE 40MG TABLET PO SCH (09:00)
[2021-08-14] MEDS: DILTIAZEM HCL 180MG CAPSULE CD 24HR PO SCH (09:00)
[2021-08-14] MEDS: CARVEDILOL 6.25 MG TABLET PO SCH ×2 (09:00→21:00)
[2021-08-14] MEDS: HEPARIN 5000 UNITS/ML VIAL SUBCUT SCH ×2 (09:00→21:23)
[2021-08-14] MEDS ORDERED: PROPOFOL 200MG/20ML VIAL IV ONE (09:59)
[2021-08-14] MEDS ORDERED: ONDANSETRON HCL 4MG/2ML INJ ONE (09:59)
[2021-08-14] MEDS ORDERED: MIDAZOLAM HCL 2 MG/2 ML VIAL ONE (09:59)
[2021-08-14] MEDS ORDERED: CEFAZOLIN SODIUM 1000MG/VIAL ONE (09:59)
[2021-08-14] MEDS ORDERED: DEXAMETHASONE 4MG/ML 1ML VIAL ONE (09:59)
[2021-08-14] MEDS ORDERED: FENTANYL CITRATE/PF 50MCG/ML 2ML VIAL ONE (10:00)
[2021-08-14] MEDS ORDERED: HYDROMORPHONE HCL/PF 2MG/ML CPJ IV PRN (10:45)
[2021-08-14] MEDS ORDERED: LABETALOL 5MG/ML SYR 20 MG/4 ML SYRINGE IV PRN (10:45)
[2021-08-14] MEDS ORDERED: ONDANSETRON HCL 4MG/2ML INJ IV PRN (10:45)
[2021-08-14] MEDS ORDERED: MEPERIDINE HCL/PF 25MG/ML CPJ IV PRN (10:45)
[2021-08-14 16:19] LABS: INR 1.3; PROTHROMBIN TIME 13.3 sec (9.6-11.0)
[2021-08-14] MEDS: ATORVASTATIN CALCIUM 20MG TABLET PO SCH (21:23)
[2021-08-15] VITALS (17 sets, daily range): BP systolic 90–135; BP diastolic 60–77
[2021-08-15] MEDS: PIPERACILLIN/TAZOBACTAM 3.375 G in DEXTROSE 5% WATER 50 ML IV SCH ×3 (05:41→22:55)
[2021-08-15] MEDS: GABAPENTIN 300MG CAPSULE PO SCH ×3 (05:41→21:39)
[2021-08-15 06:04] LABS: CHLORIDE 104 mEq/L (98-107)
[2021-08-15 06:14] LABS: BASOPHILS % 0.5 % (0.0-2.0); EOSINOPHILS % 1.6 % (0.0-5.0); MEAN CORPUSCULAR HEMOGLOBIN 25.5 pg (28.0-32.0); MEAN CORPUSCULAR VOLUME 80.1 fL (80.0-94.0); MEAN PLATELET VOLUME 6.5 fl (7.4-10.4); MONOCYTES % 9.2 % (2.0-8.0); NEUTROPHILS % 71.7 % (40.0-76.0); PLATELET 277 x1000/uL (130-400); RED BLOOD CELL COUNT 2.53 mill/uL (4.7-6.1); RED CELL DISTRIBUTION WIDTH 17.1 % (11.6-14.6)
[2021-08-15 06:54] LABS: HEMATOCRIT. 20.3 % (42.0-52.0); HEMOGLOBIN. 6.5 g/dL (14.0-18.0)
[2021-08-15] MEDS: BLOOD SUGAR DIAGNOSTIC STRIP TEST SCH ×4 (07:30→21:34)
[2021-08-15] MEDS: INSULIN LISPRO 100 UNITS/ML SUBCUT SCH ×4 (08:00→21:00)
[2021-08-15] MEDS: HEPARIN 5000 UNITS/ML VIAL SUBCUT SCH (08:44)
[2021-08-15] MEDS: DILTIAZEM HCL 180MG CAPSULE CD 24HR PO SCH (09:00)
[2021-08-15] MEDS: CARVEDILOL 6.25 MG TABLET PO SCH ×2 (09:00→21:40)
[2021-08-15] MEDS: FUROSEMIDE 40MG TABLET PO SCH (09:00)
[2021-08-15] MEDS: PANTOPRAZOLE SODIUM 40 MG/VIAL IV SCH (19:07)
[2021-08-15] MEDS: ATORVASTATIN CALCIUM 20MG TABLET PO SCH (21:39)
[2021-08-16] VITALS (12 sets, daily range): BP systolic 87–116; BP diastolic 60–77
[2021-08-16] MEDS: GABAPENTIN 300MG CAPSULE PO SCH ×3 (06:29→21:41)
[2021-08-16 07:07] LABS: BASOPHILS % 0.9 % (0.0-2.0); EOSINOPHILS % 2.4 % (0.0-5.0); HEMOGLOBIN. 8.7 g/dL (14.0-18.0); LYMPHOCYTES % 18.7 % (20.0-50.0); MEAN CORPUSCULAR HEMOGLOBIN 25.2 pg (28.0-32.0); MEAN CORPUSCULAR VOLUME 80.9 fL (80.0-94.0); MEAN PLATELET VOLUME 6.6 fl (7.4-10.4); MONOCYTES % 9.7 % (2.0-8.0); NEUTROPHILS % 68.3 % (40.0-76.0); PLATELET 373 x1000/uL (130-400); RED BLOOD CELL COUNT 3.46 mill/uL (4.7-6.1); RED CELL DISTRIBUTION WIDTH 17.4 % (11.6-14.6)
[2021-08-16 07:19] LABS: CHLORIDE 105 mEq/L (98-107)
[2021-08-16] MEDS: BLOOD SUGAR DIAGNOSTIC STRIP TEST SCH ×4 (07:30→21:41)
[2021-08-16 07:35] LABS: HAPTOGLOBIN 259 mg/dL (30-200)
[2021-08-16] MEDS: INSULIN LISPRO 100 UNITS/ML SUBCUT SCH ×4 (08:00→21:53)
[2021-08-16] MEDS: PANTOPRAZOLE SODIUM 40 MG/VIAL IV SCH (08:45)
[2021-08-16] MEDS: DILTIAZEM HCL 180MG CAPSULE CD 24HR PO SCH (08:45)
[2021-08-16] MEDS: CARVEDILOL 6.25 MG TABLET PO SCH ×2 (08:46→21:00)
[2021-08-16] MEDS: FUROSEMIDE 40MG TABLET PO SCH (08:46)
[2021-08-16] MEDS: ATORVASTATIN CALCIUM 20MG TABLET PO SCH (21:41)
[2021-08-17] VITALS (10 sets, daily range): BP systolic 89–117; BP diastolic 58–77
[2021-08-17] MEDS: GABAPENTIN 300MG CAPSULE PO SCH ×2 (05:38→13:06)
[2021-08-17 06:51] LABS: BASOPHILS % 0.7 % (0.0-2.0); EOSINOPHILS % 1.4 % (0.0-5.0); HEMATOCRIT. 27.3 % (42.0-52.0); HEMOGLOBIN. 8.7 g/dL (14.0-18.0); LYMPHOCYTES % 18.6 % (20.0-50.0); MEAN CORPUSCULAR HEMOGLOBIN 25.7 pg (28.0-32.0); MEAN CORPUSCULAR VOLUME 80.9 fL (80.0-94.0); MEAN PLATELET VOLUME 6.3 fl (7.4-10.4); MONOCYTES % 10.4 % (2.0-8.0); NEUTROPHILS % 68.9 % (40.0-76.0); PLATELET 358 x1000/uL (130-400); RED BLOOD CELL COUNT 3.38 mill/uL (4.7-6.1); RED CELL DISTRIBUTION WIDTH 17.7 % (11.6-14.6)
[2021-08-17] MEDS: INSULIN LISPRO 100 UNITS/ML SUBCUT SCH ×3 (07:30→18:04)
[2021-08-17] MEDS: BLOOD SUGAR DIAGNOSTIC STRIP TEST SCH ×3 (07:30→17:31)
[2021-08-17 07:35] LABS: CHLORIDE 105 mEq/L (98-107)
[2021-08-17] MEDS: CARVEDILOL 6.25 MG TABLET PO SCH (08:48)
[2021-08-17] MEDS: PANTOPRAZOLE SODIUM 40 MG/VIAL IV SCH (08:48)
[2021-08-17] MEDS: DILTIAZEM HCL 180MG CAPSULE CD 24HR PO SCH (09:00)
[2021-08-17] MEDS: FUROSEMIDE 40MG TABLET PO SCH (09:00)
[2021-08-17 09:09] LABS: ERYTHROPOIETIN SERUM 16.8 mIU/mL (2.6-18.5); IMMUNOGLOBULIN A 254 mg/dL (61-437); IMMUNOGLOBULIN G 1539 mg/dL (603-1613); IMMUNOGLOBULIN M 156 mg/dL (15-143)
[2021-08-17] MEDS ORDERED: SODIUM CHLORIDE 0.9% 500 ML IV NR (10:30)
[2021-08-17] MEDS ORDERED: CARVEDILOL 3.125 MG TABLET PO SCH (21:00)
[2021-08-21 07:12] LABS: HGB A2 1.6 % (1.8-3.2)
== END 2021-08-17 21:40 | DRG 853 ==
LOC: ER 15:08 → 5EST 21:21 → EDBEDREQTM 21:54 → EDBEDREQ 21:54 → ENRESERV 23:46
PROVIDERS: ADMIT Internal Medicine; ATTEND Internal Medicine
PROC: 30233N1 Transfusion of Nonautologous Red Blood Cells into Peripheral Vein, Percutaneous Approach (ICD-10-PCS; principal; 2021-08-10)
PROC: 0LBW0ZZ Excision of Left Foot Tendon, Open Approach (ICD-10-PCS; 2021-08-14)
PROC: 0KBP0ZZ Excision of Left Hip Muscle, Open Approach (ICD-10-PCS; 2021-08-14)
PROC: 0KBN0ZZ Excision of Right Hip Muscle, Open Approach (ICD-10-PCS; 2021-08-14)
PROC: 02HV33Z Insertion of Infusion Device into Superior Vena Cava, Percutaneous Approach (ICD-10-PCS; 2021-08-14)
PROC: B548ZZA Ultrasonography of Superior Vena Cava, Guidance (ICD-10-PCS; 2021-08-14)
DX: A41.9 Sepsis, unspecified organism (principal); L89.224 Pressure ulcer of left hip, stage 4; L89.624 Pressure ulcer of left heel, stage 4; L89.154 Pressure ulcer of sacral region, stage 4; E43 Unspecified severe protein-calorie malnutrition; G82.20 Paraplegia, unspecified; N39.0 Urinary tract infection, site not specified; M48.00 Spinal stenosis, site unspecified; D50.9 Iron deficiency anemia, unspecified; E11.621 Type 2 diabetes mellitus with foot ulcer; D57.1 Sickle-cell disease without crisis; I25.10 Atherosclerotic heart disease of native coronary artery without angina pectoris; J44.9 Chronic obstructive pulmonary disease, unspecified; N18.9 Chronic kidney disease, unspecified; Z20.822 Contact with and (suspected) exposure to COVID-19; I12.9 Hypertensive chronic kidney disease with stage 1 through stage 4 chronic kidney disease, or unspecified chronic kidney disease; E11.22 Type 2 diabetes mellitus with diabetic chronic kidney disease; M24.552 Contracture, left hip; M47.816 Spondylosis without myelopathy or radiculopathy, lumbar region; Z79.84 Long term (current) use of oral hypoglycemic drugs; Z79.899 Other long term (current) drug therapy; Z79.82 Long term (current) use of aspirin; I25.2 Old myocardial infarction; Z87.891 Personal history of nicotine dependence; Z68.20 Body mass index [BMI] 20.0-20.9, adult; Z74.01 Bed confinement status; Z82.49 Family history of ischemic heart disease and other diseases of the circulatory system
CPT/HCPCS: 36415; 36573; 71045; 73590; 80048; 80053; 82270; 82607; 82668; 82728; 82746; 82784; 82962; 83010; 83021; 83036; 83540; 83550; 83605; 83615; 83735; 83880; 84100; 84145; 84484; 85018; 85025; 85044; 85651; 85660; 86140; 86334; 86850; 86880; 86900; 86920; 87070; 87075; 87077; 87186; 87426; 93005; 93923; 99291; C1725; C1893; C9113; J0690; J1100; J1644; J1815; J1885; J2250; J2405; J2543; J2704; J3010; J3475; J3490; J7030; J7060; P9016

== ENCOUNTER 2021-10-16 12:04 | Inpatient (IN) | payer OTHER, MEDICAID ==
[~2021-10-16] VITALS: Ht 175.3 cm; Wt 73.0 kg
[2021-10-16] MEDS ORDERED: SODIUM CHLORIDE 0.9% 1000ML BAG (SEPSIS BOLUS) IV ONE (12:45)
[2021-10-16 12:58] LABS: MEAN CORPUSCULAR HEMOGLOBIN 23.9 pg (28.0-32.0); MEAN PLATELET VOLUME 6.9 fl (7.4-10.4); PLATELET 404 x1000/uL (130-400); RED BLOOD CELL COUNT 2.21 mill/uL (4.7-6.1); RED CELL DISTRIBUTION WIDTH 18.5 % (11.6-14.6)
[2021-10-16 13:06] LABS: HEMATOCRIT. 17.5 % (42.0-52.0); HEMOGLOBIN. 5.3 g/dL (14.0-18.0)
[2021-10-16 13:12] LABS: CHLORIDE 94 mEq/L (98-107)
[2021-10-16] MEDS ORDERED: LIDOCAINE HCL 1% 10 MG/ML 10ML VIAL ONE (13:27)
[2021-10-16 16:59] LABS: PLATELET ESTIMATE SLIGHTLY INCREASED
[2021-10-16 20:00] VITALS: BP 80/56
[2021-10-16 20:05] VITALS: BP 80/56
[2021-10-16] MEDS ORDERED: HYDR-4001 MT (20:53)
[2021-10-16] MEDS ORDERED: PANT40TA51 MT (20:53)
[2021-10-16] MEDS ORDERED: DOCU250C14 MT (20:53)
[2021-10-16] MEDS ORDERED: ACET-2708 MT (20:53)
[2021-10-16] MEDS ORDERED: INSLIS SUBCUT (20:53)
[2021-10-16] MEDS ORDERED: VANCOMYCIN 1G PREMIX 200 ML IV STA (22:17)
[2021-10-16] MEDS ORDERED: DEXTROSE 50% WATER 50ML SYRINGE IV PRN (22:30)
[2021-10-16] MEDS ORDERED: POTASSIUM CHLORIDE 20MEQ TABLET SR PO NR (22:30)
[2021-10-16] MEDS ORDERED: SODIUM CHLORIDE 0.9% 250 ML IV ONE (22:30)
[2021-10-16] MEDS ORDERED: VANCOMYCIN 1250MG in DEXTROSE 5% WATER 250ML IV NR (23:00)
[2021-10-16 23:58] LABS: MEAN CORPUSCULAR HEMOGLOBIN 25.4 pg (28.0-32.0); MEAN CORPUSCULAR VOLUME 81.3 fL (80.0-94.0); MEAN PLATELET VOLUME 6.7 fl (7.4-10.4); PLATELET 346 x1000/uL (130-400); RED BLOOD CELL COUNT 2.34 mill/uL (4.7-6.1); RED CELL DISTRIBUTION WIDTH 18.2 % (11.6-14.6)
[2021-10-16] MEDS ORDERED: PIPERACILLIN/TAZOBACTAM 3.375G in DEXT 5% WATER 50ML IV SCH (23:59)
[2021-10-17] VITALS (14 sets, daily range): BP systolic 77–92; BP diastolic 54–63
[2021-10-17] MEDS ORDERED: PIPERACILLIN/TAZOBACTAM 3.375 G in DEXTROSE 5% WATER 50 ML IV SCH ×2
[2021-10-17] MEDS ORDERED: SODIUM CHLORIDE 0.9% 250 ML IV ONE
[2021-10-17 00:09] LABS: HEMOGLOBIN. 5.9 g/dL (14.0-18.0)
[2021-10-17 00:40] LABS: PLATELET ESTIMATE NORMAL
[2021-10-17] MEDS ORDERED: PIPERACILLIN/TAZOBACTAM 3.375G in DEXT 5% WATER 50ML IV SCH (03:00)
[2021-10-17] MEDS: INSULIN LISPRO 100 UNITS/ML SUBCUT SCH ×4 (07:50→21:00)
[2021-10-17] MEDS ORDERED: MEROPENEM 500 MG in SODIUM CHLORIDE 0.9% 50 ML IV SCH (08:00)
[2021-10-17] MEDS: BLOOD SUGAR DIAGNOSTIC STRIP TEST SCH ×4 (08:04→21:09)
[2021-10-17] MEDS ORDERED: PANTOPRAZOLE 40MG DR TABLET PO SCH (09:00)
[2021-10-17] MEDS: MEROPENEM 1000MG in NORMAL SALINE 100ML IV SCH ×2 (14:00→17:13)
[2021-10-17] MEDS: VANCOMYCIN 750MG PREMIX 150 ML IV SCH ×2 (17:12→22:07)
[2021-10-17] MEDS: PANTOPRAZOLE SODIUM 40 MG/VIAL IV SCH (17:12)
[2021-10-18] VITALS: BP 81/53
[2021-10-18] MEDS: MEROPENEM 1000MG in NORMAL SALINE 100ML IV SCH ×3 (01:27→19:01)
[2021-10-18 01:57] LABS: TOTAL IRON BINDING CAPACITY 129 ug/dL (250-450)
[2021-10-18 02:23] LABS: FOLIC ACID (FOLATE) SERUM 0.6 ng/mL (>5.38)
[2021-10-18 04:00] VITALS: BP 86/56
[2021-10-18] MEDS: BLOOD SUGAR DIAGNOSTIC STRIP TEST SCH ×4 (07:20→21:27)
[2021-10-18 07:46] LABS: CHLORIDE 102 mEq/L (98-107)
[2021-10-18 07:48] LABS: HEMATOCRIT. 27.2 % (42.0-52.0); HEMOGLOBIN. 8.8 g/dL (14.0-18.0); MEAN CORPUSCULAR VOLUME 83.7 fL (80.0-94.0); MEAN PLATELET VOLUME 7.1 fl (7.4-10.4); PLATELET 247 x1000/uL (130-400); RED BLOOD CELL COUNT 3.25 mill/uL (4.7-6.1); RED CELL DISTRIBUTION WIDTH 17.6 % (11.6-14.6)
[2021-10-18 08:00] VITALS: BP 88/58
[2021-10-18] MEDS: PANTOPRAZOLE SODIUM 40 MG/VIAL IV SCH (09:46)
[2021-10-18] MEDS: VANCOMYCIN 750MG PREMIX 150 ML IV SCH (09:46)
[2021-10-18] MEDS: INSULIN LISPRO 100 UNITS/ML SUBCUT SCH ×4 (10:00→21:26)
[2021-10-18 12:00] VITALS: BP 87/61
[2021-10-18 16:00] VITALS: BP 91/65
[2021-10-18 18:30] LABS: PLATELET ESTIMATE NORMAL
[2021-10-18 20:00] VITALS: BP 94/66
[2021-10-19] VITALS: BP 87/57
[2021-10-19] MEDS: MEROPENEM 1000MG in NORMAL SALINE 100ML IV SCH ×3 (02:34→17:56)
[2021-10-19 04:00] VITALS: BP 81/57
[2021-10-19 06:33] LABS: HEMATOCRIT. 28.7 % (42.0-52.0); HEMOGLOBIN. 9.2 g/dL (14.0-18.0); MEAN CORPUSCULAR HEMOGLOBIN 26.9 pg (28.0-32.0); MEAN CORPUSCULAR VOLUME 84.1 fL (80.0-94.0); MEAN PLATELET VOLUME 7.2 fl (7.4-10.4); PLATELET 244 x1000/uL (130-400); RED BLOOD CELL COUNT 3.41 mill/uL (4.7-6.1); RED CELL DISTRIBUTION WIDTH 18.4 % (11.6-14.6)
[2021-10-19] MEDS: BLOOD SUGAR DIAGNOSTIC STRIP TEST SCH ×4 (06:56→21:40)
[2021-10-19 07:55] LABS: CHLORIDE 102 mEq/L (98-107)
[2021-10-19 08:00] VITALS: BP 88/62
[2021-10-19] MEDS: PANTOPRAZOLE SODIUM 40 MG/VIAL IV SCH (10:07)
[2021-10-19] MEDS: INSULIN LISPRO 100 UNITS/ML SUBCUT SCH ×4 (10:09→21:46)
[2021-10-19 12:00] VITALS: BP 81/60
[2021-10-19 16:00] VITALS: BP 82/52
[2021-10-19 20:00] VITALS: BP 90/60
[2021-10-19 23:25] LABS: PLATELET ESTIMATE NORMAL
[2021-10-20] VITALS: BP 96/73
[2021-10-20] MEDS: MEROPENEM 1000MG in NORMAL SALINE 100ML IV SCH ×3 (02:07→18:24)
[2021-10-20 04:00] VITALS: BP 89/60
[2021-10-20 07:28] LABS: CHLORIDE 101 mEq/L (98-107)
[2021-10-20 07:31] LABS: HEMATOCRIT. 28.6 % (42.0-52.0); LYMPHOCYTES % 7.7 % (20.0-50.0); MEAN CORPUSCULAR HEMOGLOBIN 27.6 pg (28.0-32.0); MEAN CORPUSCULAR VOLUME 87.6 fL (80.0-94.0); MEAN PLATELET VOLUME 7.6 fl (7.4-10.4); MONOCYTES % 4.6 % (2.0-8.0); NEUTROPHILS % 87.7 % (40.0-76.0); PLATELET 201 x1000/uL (130-400); RED BLOOD CELL COUNT 3.26 mill/uL (4.7-6.1); RED CELL DISTRIBUTION WIDTH 18.3 % (11.6-14.6)
[2021-10-20] MEDS: INSULIN LISPRO 100 UNITS/ML SUBCUT SCH ×4 (07:50→20:55)
[2021-10-20 08:06] VITALS: BP 89/65
[2021-10-20] MEDS: BLOOD SUGAR DIAGNOSTIC STRIP TEST SCH ×4 (08:11→20:56)
[2021-10-20] MEDS: PANTOPRAZOLE SODIUM 40 MG/VIAL IV SCH (09:05)
[2021-10-20] MEDS ORDERED: SODIUM CHLORIDE 0.9% 500 ML IV ONE ×2 (11:15→16:00)
[2021-10-20 11:45] VITALS: BP 84/57
[2021-10-20] MEDS ORDERED: LIDOCAINE HCL 1% 20ML VIAL (Pyxis) INJ ONE (12:29)
[2021-10-20] MEDS ORDERED: ONDANSETRON HCL 4MG/2ML INJ ONE (12:29)
[2021-10-20] MEDS ORDERED: DEXAMETHASONE 4MG/ML 1ML VIAL ONE (12:29)
[2021-10-20] MEDS ORDERED: PROPOFOL 200MG/20ML VIAL IV ONE (12:29)
[2021-10-20] MEDS ORDERED: FENTANYL CITRATE/PF 50MCG/ML 2ML VIAL ONE (12:30)
[2021-10-20] MEDS ORDERED: MIDAZOLAM HCL 2 MG/2 ML VIAL ONE (12:30)
[2021-10-20] MEDS ORDERED: PHENYLEPHRINE HCL 10 MG/ML 1ML (IV VIAL) IV ONE ×2 (12:58→13:07)
[2021-10-20] MEDS ORDERED: BUPIVACAINE HCL 0.5% (5MG/ML) 50ML ONE (13:06)
[2021-10-20] MEDS ORDERED: HYDROMORPHONE HCL/PF 2MG/ML CPJ IV PRN (13:45)
[2021-10-20] MEDS ORDERED: ONDANSETRON HCL 4MG/2ML INJ IV PRN (13:45)
[2021-10-20] MEDS ORDERED: MEPERIDINE HCL/PF 25MG/ML CPJ IV PRN (13:45)
[2021-10-20] MEDS ORDERED: LABETALOL 5MG/ML SYR 20 MG/4 ML SYRINGE IV PRN (13:45)
[2021-10-20] MEDS ORDERED: NALOXONE HCL 0.4MG/ML VIAL IV PRN (14:15)
[2021-10-20] MEDS ORDERED: HYDROCODONE/ACETAMINOPHEN 5/325MG TABLET PO PRN (14:15)
[2021-10-20] MEDS ORDERED: MIDODRINE HCL 5MG TABLET PO NR (15:45)
[2021-10-20 16:00] VITALS: BP 88/64
[2021-10-20] MEDS: MIDODRINE HCL 5MG TABLET PO SCH (18:24)
[2021-10-20 20:00] VITALS: BP 96/57
[2021-10-21] VITALS: BP 100/51
[2021-10-21] MEDS: MEROPENEM 1000MG in NORMAL SALINE 100ML IV SCH ×3 (02:00→17:20)
[2021-10-21 04:13] VITALS: BP 105/52
[2021-10-21] MEDS: BLOOD SUGAR DIAGNOSTIC STRIP TEST SCH ×4 (07:20→21:28)
[2021-10-21 07:42] LABS: BASOPHILS % 0.2 % (0.0-2.0); EOSINOPHILS % 0.3 % (0.0-5.0); HEMATOCRIT. 26.5 % (42.0-52.0); HEMOGLOBIN. 8.5 g/dL (14.0-18.0); LYMPHOCYTES % 10.1 % (20.0-50.0); MEAN CORPUSCULAR HEMOGLOBIN 27.3 pg (28.0-32.0); MEAN CORPUSCULAR VOLUME 84.8 fL (80.0-94.0); MEAN PLATELET VOLUME 7.5 fl (7.4-10.4); MONOCYTES % 4.9 % (2.0-8.0); NEUTROPHILS % 84.5 % (40.0-76.0); PLATELET 198 x1000/uL (130-400); RED BLOOD CELL COUNT 3.13 mill/uL (4.7-6.1); RED CELL DISTRIBUTION WIDTH 18.8 % (11.6-14.6)
[2021-10-21] MEDS: INSULIN LISPRO 100 UNITS/ML SUBCUT SCH ×4 (07:50→21:40)
[2021-10-21 07:58] LABS: CHLORIDE 103 mEq/L (98-107)
[2021-10-21 08:00] VITALS: BP 86/66
[2021-10-21] MEDS: MIDODRINE HCL 5MG TABLET PO SCH ×3 (09:21→17:20)
[2021-10-21] MEDS: PANTOPRAZOLE SODIUM 40 MG/VIAL IV SCH (09:21)
[2021-10-21 12:30] VITALS: BP 88/68
[2021-10-21 16:00] VITALS: BP 86/62
[2021-10-21] MEDS ORDERED: ONDANSETRON HCL 4MG/2ML INJ IV PRN (17:45)
[2021-10-21 20:00] VITALS: BP 86/52
[2021-10-22] VITALS (7 sets, daily range): BP systolic 88–126; BP diastolic 60–92
[2021-10-22] MEDS: MEROPENEM 1000MG in NORMAL SALINE 100ML IV SCH ×3 (01:22→17:12)
[2021-10-22 06:43] LABS: HEMATOCRIT. 28.2 % (42.0-52.0); HEMOGLOBIN. 8.7 g/dL (14.0-18.0); MEAN CORPUSCULAR HEMOGLOBIN 27.1 pg (28.0-32.0); MEAN CORPUSCULAR VOLUME 88.2 fL (80.0-94.0); MEAN PLATELET VOLUME 7.6 fl (7.4-10.4); PLATELET 221 x1000/uL (130-400); RED CELL DISTRIBUTION WIDTH 19.4 % (11.6-14.6)
[2021-10-22] MEDS: BLOOD SUGAR DIAGNOSTIC STRIP TEST SCH ×4 (07:34→21:00)
[2021-10-22 07:38] LABS: CHLORIDE 103 mEq/L (98-107)
[2021-10-22] MEDS: INSULIN LISPRO 100 UNITS/ML SUBCUT SCH ×4 (07:50→22:31)
[2021-10-22] MEDS: PANTOPRAZOLE SODIUM 40 MG/VIAL IV SCH (09:03)
[2021-10-22] MEDS: MIDODRINE HCL 5MG TABLET PO SCH ×3 (09:03→17:12)
[2021-10-22 10:27] LABS: PLATELET ESTIMATE NORMAL
[2021-10-23] VITALS (7 sets, daily range): BP systolic 88–112; BP diastolic 59–68
[2021-10-23] MEDS: MEROPENEM 1000MG in NORMAL SALINE 100ML IV SCH ×3 (01:23→20:09)
[2021-10-23] MEDS: BLOOD SUGAR DIAGNOSTIC STRIP TEST SCH ×4 (06:27→21:55)
[2021-10-23] MEDS: INSULIN LISPRO 100 UNITS/ML SUBCUT SCH ×4 (07:50→21:00)
[2021-10-23] MEDS: MIDODRINE HCL 5MG TABLET PO SCH ×3 (08:38→20:06)
[2021-10-23] MEDS: PANTOPRAZOLE SODIUM 40 MG/VIAL IV SCH (08:57)
[2021-10-23] MEDS: SODIUM HYPOCHLORITE 0.125% 473ML SOLUTION TOP PRN (14:51)
[2021-10-24] MEDS: MEROPENEM 1000MG in NORMAL SALINE 100ML IV SCH ×3 (02:21→18:02)
[2021-10-24 04:00] VITALS: BP 95/74
[2021-10-24 06:34] LABS: CHLORIDE 104 mEq/L (98-107)
[2021-10-24] MEDS: BLOOD SUGAR DIAGNOSTIC STRIP TEST SCH ×4 (07:04→20:32)
[2021-10-24] MEDS: INSULIN LISPRO 100 UNITS/ML SUBCUT SCH ×4 (07:05→21:11)
[2021-10-24 07:09] LABS: HEMATOCRIT. 27.8 % (42.0-52.0); HEMOGLOBIN. 8.5 g/dL (14.0-18.0); MEAN CORPUSCULAR HEMOGLOBIN 27.1 pg (28.0-32.0); MEAN CORPUSCULAR VOLUME 88.7 fL (80.0-94.0); MEAN PLATELET VOLUME 7.6 fl (7.4-10.4); PLATELET 235 x1000/uL (130-400); RED BLOOD CELL COUNT 3.14 mill/uL (4.7-6.1); RED CELL DISTRIBUTION WIDTH 19.2 % (11.6-14.6)
[2021-10-24 08:00] VITALS: BP 83/62
[2021-10-24] MEDS: IPRATROPIUM/ALBUTEROL 0.5-3(2.5)MG/3ML NEB HHN PRN ×3 (08:28→19:53)
[2021-10-24] MEDS: PANTOPRAZOLE SODIUM 40 MG/VIAL IV SCH (08:46)
[2021-10-24] MEDS: MIDODRINE HCL 5MG TABLET PO SCH ×3 (08:46→18:02)
[2021-10-24 12:00] VITALS: BP 87/89
[2021-10-24 16:00] VITALS: BP 89/64
[2021-10-24 20:00] VITALS: BP 91/66
[2021-10-24 22:01] LABS: PLATELET ESTIMATE NORMAL
[2021-10-25] VITALS: BP 146/89
[2021-10-25] MEDS: MEROPENEM 1000MG in NORMAL SALINE 100ML IV SCH ×2 (01:05→17:36)
[2021-10-25] MEDS: IPRATROPIUM/ALBUTEROL 0.5-3(2.5)MG/3ML NEB HHN PRN ×2 (11:48→22:16)
[2021-10-25 12:00] VITALS: BP 119/64
[2021-10-25] MEDS: BLOOD SUGAR DIAGNOSTIC STRIP TEST SCH ×3 (12:20→21:12)
[2021-10-25 12:28] LABS: CHLORIDE 104 mEq/L (98-107)
[2021-10-25] MEDS: INSULIN LISPRO 100 UNITS/ML SUBCUT SCH ×3 (12:50→21:19)
[2021-10-25] MEDS: MIDODRINE HCL 5MG TABLET PO SCH ×2 (12:58→16:40)
[2021-10-25 13:14] LABS: HEMATOCRIT. 28.1 % (42.0-52.0); HEMOGLOBIN. 8.8 g/dL (14.0-18.0); MEAN CORPUSCULAR HEMOGLOBIN 27.5 pg (28.0-32.0); MEAN CORPUSCULAR VOLUME 88.3 fL (80.0-94.0); PLATELET 245 x1000/uL (130-400); RED BLOOD CELL COUNT 3.18 mill/uL (4.7-6.1); RED CELL DISTRIBUTION WIDTH 19.7 % (11.6-14.6)
[2021-10-25] MEDS ORDERED: SODIUM POLYSTYRENE SULFONATE 15 G/60 ML BOT PO SCH (15:15)
[2021-10-25 16:58] LABS: PLATELET ESTIMATE NORMAL
[2021-10-25 20:00] VITALS: BP 92/69
[2021-10-25] MEDS ORDERED: DIGOXIN 500MCG/2ML AMP IV NR ×2 (22:00→23:30)
[2021-10-25 23:52] VITALS: BP 86/58
[2021-10-26 00:08] LABS: HEMATOCRIT 25.3 % (42.0-52.0); MEAN CORPUSCULAR HEMOGLOBIN 27.5 pg (28.0-32.0); MEAN CORPUSCULAR VOLUME 86.6 fL (80.0-94.0); PLATELET 178 x1000/uL (130-400); RED BLOOD CELL COUNT 2.92 mill/uL (4.7-6.1); RED CELL DISTRIBUTION WIDTH 19.7 % (11.6-14.6)
[2021-10-26 00:15] LABS: CHLORIDE 106 mEq/L (98-107)
[2021-10-26] MEDS: MEROPENEM 1000MG in NORMAL SALINE 100ML IV SCH ×3 (01:55→17:12)
[2021-10-26 04:00] VITALS: BP 93/60
[2021-10-26] MEDS: BLOOD SUGAR DIAGNOSTIC STRIP TEST SCH ×4 (06:44→21:22)
[2021-10-26 07:15] LABS: HEMATOCRIT. 26.9 % (42.0-52.0); HEMOGLOBIN. 8.5 g/dL (14.0-18.0); MEAN CORPUSCULAR HEMOGLOBIN 27.2 pg (28.0-32.0); MEAN CORPUSCULAR VOLUME 86.4 fL (80.0-94.0); MEAN PLATELET VOLUME 8.1 fl (7.4-10.4); PLATELET 184 x1000/uL (130-400); RED BLOOD CELL COUNT 3.11 mill/uL (4.7-6.1); RED CELL DISTRIBUTION WIDTH 19.4 % (11.6-14.6)
[2021-10-26 07:25] LABS: CHLORIDE 105 mEq/L (98-107)
[2021-10-26 08:00] VITALS: BP 89/60
[2021-10-26] MEDS: MIDODRINE HCL 5MG TABLET PO SCH ×3 (08:51→17:12)
[2021-10-26] MEDS: PANTOPRAZOLE SODIUM 40 MG/VIAL IV SCH (08:51)
[2021-10-26] MEDS: INSULIN LISPRO 100 UNITS/ML SUBCUT SCH ×4 (08:52→21:00)
[2021-10-26 11:56] VITALS: BP 91/56
[2021-10-26 16:00] VITALS: BP 102/67
[2021-10-26 20:00] VITALS: BP 99/67
[2021-10-27] VITALS: BP 100/54
[2021-10-27] MEDS: MEROPENEM 1000MG in NORMAL SALINE 100ML IV SCH ×3 (01:34→18:02)
[2021-10-27 04:00] VITALS: BP 97/71
[2021-10-27] MEDS: BLOOD SUGAR DIAGNOSTIC STRIP TEST SCH ×4 (06:50→21:00)
[2021-10-27 08:00] VITALS: BP_SYST 114; BP_SYST 120; BP_DIAS 74; BP_DIAS 75
[2021-10-27 09:14] LABS: HEMATOCRIT. 31.4 % (42.0-52.0); HEMOGLOBIN. 8.8 g/dL (14.0-18.0); MEAN CORPUSCULAR HEMOGLOBIN 27.3 pg (28.0-32.0); MEAN CORPUSCULAR VOLUME 97.7 fL (80.0-94.0); MEAN PLATELET VOLUME 8.3 fl (7.4-10.4); PLATELET 147 x1000/uL (130-400); RED BLOOD CELL COUNT 3.22 mill/uL (4.7-6.1); RED CELL DISTRIBUTION WIDTH 21.1 % (11.6-14.6)
[2021-10-27 09:21] LABS: CHLORIDE 108 mEq/L (98-107)
[2021-10-27] MEDS: INSULIN LISPRO 100 UNITS/ML SUBCUT SCH ×4 (09:58→21:00)
[2021-10-27] MEDS: PANTOPRAZOLE SODIUM 40 MG/VIAL IV SCH (10:00)
[2021-10-27] MEDS: MIDODRINE HCL 5MG TABLET PO SCH ×3 (10:00→18:02)
[2021-10-27] MEDS ORDERED: DIGOXIN 500MCG/2ML AMP IV NR ×2 (10:15→13:00)
[2021-10-27 10:30] LABS: BG CARBOXYHEMOGLOBIN 0.3 % (0.5-1.5); BG DEOXYHEMOGLOBIN 2.2 % (0.0-5.0); BG HCO3 ACT 19.3 mmol/L (22.0-26.0); BG METHEMOGLOBIN 0.3 % (0.0-1.5); BG OXYGEN SATURATION 97.8 % (92.0-98.5); BG OXYHEMOGLOBIN 97.2 % (94.0-97.0); BG PH 7.441 (7.350-7.450); BG PO2 109.3 mmHg (75.0-100.0); BG SAMPLE SITE RIGHT BRACHIAL; BG TOTAL HEMOGLOBIN 9.4 g/dL (12.0-18.0); BG VENT MODE NASAL CANNULA
[2021-10-27 12:00] VITALS: BP 121/83
[2021-10-27 12:33] LABS: PLATELET ESTIMATE NORMAL
[2021-10-27 13:47] LABS: PLATELET ESTIMATE NORMAL
[2021-10-27 16:00] VITALS: BP 107/80
[2021-10-27] MEDS: SODIUM HYPOCHLORITE 0.125% 473ML SOLUTION TOP PRN (16:44)
[2021-10-27] MEDS: DIGOXIN 500MCG/2ML AMP IV SCH (18:02)
[2021-10-27 20:00] VITALS: BP 110/79
[2021-10-28] VITALS: BP 111/77
[2021-10-28] MEDS: MEROPENEM 1000MG in NORMAL SALINE 100ML IV SCH ×3 (02:00→18:54)
[2021-10-28 06:17] LABS: CHLORIDE 110 mEq/L (98-107)
[2021-10-28 06:53] LABS: HEMOGLOBIN. 7.8 g/dL (14.0-18.0); MEAN CORPUSCULAR HEMOGLOBIN 27.6 pg (28.0-32.0); MEAN PLATELET VOLUME 8.4 fl (7.4-10.4); PLATELET 131 x1000/uL (130-400); RED BLOOD CELL COUNT 2.81 mill/uL (4.7-6.1); RED CELL DISTRIBUTION WIDTH 19.9 % (11.6-14.6)
[2021-10-28 07:09] LABS: HEMATOCRIT. 24.7 % (42.0-52.0)
[2021-10-28 07:10] LABS: MEAN CORPUSCULAR VOLUME 87.9 fL (80.0-94.0)
[2021-10-28] MEDS: BLOOD SUGAR DIAGNOSTIC STRIP TEST SCH ×4 (07:20→20:40)
[2021-10-28] MEDS: INSULIN LISPRO 100 UNITS/ML SUBCUT SCH ×4 (07:50→21:44)
[2021-10-28 08:00] VITALS: BP 88/60
[2021-10-28] MEDS: PANTOPRAZOLE SODIUM 40 MG/VIAL IV SCH (09:27)
[2021-10-28] MEDS: MIDODRINE HCL 5MG TABLET PO SCH ×3 (09:28→18:51)
[2021-10-28] MEDS ORDERED: KCL 20MEQ/100ML PREMIX 100 ML IV SCH (11:00)
[2021-10-28 12:00] VITALS: BP 86/54
[2021-10-28 14:15] LABS: PLATELET ESTIMATE NORMAL
[2021-10-28 16:00] VITALS: BP 84/52
[2021-10-28] MEDS: DIGOXIN 500MCG/2ML AMP IV SCH (18:51)
[2021-10-28 20:00] VITALS: BP 82/58
[2021-10-28] MEDS: SODIUM CHLORIDE 0.9% 250 ML IV NR ×4 (20:16→21:45)
[2021-10-29] VITALS: BP 94/55
[2021-10-29] MEDS: MEROPENEM 1000MG in NORMAL SALINE 100ML IV SCH ×2 (02:00→10:14)
[2021-10-29 04:00] VITALS: BP 88/53
[2021-10-29] MEDS: BLOOD SUGAR DIAGNOSTIC STRIP TEST SCH ×2 (07:04→12:20)
[2021-10-29] MEDS: INSULIN LISPRO 100 UNITS/ML SUBCUT SCH ×2 (07:50→12:50)
[2021-10-29 08:00] VITALS: BP 85/56
[2021-10-29] MEDS: PANTOPRAZOLE SODIUM 40 MG/VIAL IV SCH (10:13)
[2021-10-29] MEDS: MIDODRINE HCL 5MG TABLET PO SCH ×2 (10:16→14:04)
[2021-10-29 12:26] VITALS: BP 83/53
[2021-10-29 16:24] VITALS: BP 88/64
[2021-10-29 17:57] VITALS: BP 100/68
== END 2021-10-29 18:35 | DRG 853 ==
LOC: ER 12:16 → 6WST 16:08 → EDBEDREQTM 16:11 → EDBEDREQ 16:11 → ENRESERV 16:38
PROVIDERS: ADMIT Internal Medicine; ATTEND Internal Medicine
PROC: 02HV33Z Insertion of Infusion Device into Superior Vena Cava, Percutaneous Approach (ICD-10-PCS; 2021-10-16)
PROC: B548ZZA Ultrasonography of Superior Vena Cava, Guidance (ICD-10-PCS; 2021-10-16)
PROC: 30233N1 Transfusion of Nonautologous Red Blood Cells into Peripheral Vein, Percutaneous Approach (ICD-10-PCS; 2021-10-16)
PROC: 0KBP0ZZ Excision of Left Hip Muscle, Open Approach (ICD-10-PCS; principal; 2021-10-20)
PROC: 0JBC0ZZ Excision of Pelvic Region Subcutaneous Tissue and Fascia, Open Approach (ICD-10-PCS; 2021-10-20)
PROC: 0Y980ZZ Drainage of Left Femoral Region, Open Approach (ICD-10-PCS; 2021-10-20)
PROC: 0KBN0ZZ Excision of Right Hip Muscle, Open Approach (ICD-10-PCS; 2021-10-20)
DX: A41.59 Other Gram-negative sepsis (principal); E43 Unspecified severe protein-calorie malnutrition; L89.154 Pressure ulcer of sacral region, stage 4; K57.91 Diverticulosis of intestine, part unspecified, without perforation or abscess with bleeding; G82.20 Paraplegia, unspecified; N39.0 Urinary tract infection, site not specified; I48.20 Chronic atrial fibrillation, unspecified; I42.9 Cardiomyopathy, unspecified; M86.9 Osteomyelitis, unspecified; L02.416 Cutaneous abscess of left lower limb; Z20.822 Contact with and (suspected) exposure to COVID-19; L89.229 Pressure ulcer of left hip, unspecified stage; L97.529 Non-pressure chronic ulcer of other part of left foot with unspecified severity; L89.329 Pressure ulcer of left buttock, unspecified stage; I95.9 Hypotension, unspecified; D64.9 Anemia, unspecified; E11.621 Type 2 diabetes mellitus with foot ulcer; E87.6 Hypokalemia; E88.09 Other disorders of plasma-protein metabolism, not elsewhere classified; E87.5 Hyperkalemia; I11.0 Hypertensive heart disease with heart failure; I50.9 Heart failure, unspecified; E78.00 Pure hypercholesterolemia, unspecified; E11.51 Type 2 diabetes mellitus with diabetic peripheral angiopathy without gangrene; M48.061 Spinal stenosis, lumbar region without neurogenic claudication; D57.1 Sickle-cell disease without crisis; J44.9 Chronic obstructive pulmonary disease, unspecified; I44.7 Left bundle-branch block, unspecified; E78.5 Hyperlipidemia, unspecified; F10.10 Alcohol abuse, uncomplicated; F17.200 Nicotine dependence, unspecified, uncomplicated; I25.2 Old myocardial infarction; Z68.23 Body mass index [BMI] 23.0-23.9, adult; Z79.4 Long term (current) use of insulin; Z79.899 Other long term (current) drug therapy
CPT/HCPCS: 36415; 36573; 36600; 71045; 74018; 74176; 80048; 80053; 80202; 82270; 82375; 82607; 82728; 82746; 82805; 82962; 83036; 83540; 83550; 83605; 83735; 84145; 85025; 85027; 85044; 85651; 86141; 86850; 86900; 86920; 87070; 87077; 87186; 87426; 88304; 93005; 93306; 94640; 99291; C1725; C9113; J1100; J1160; J1815; J2185; J2250; J2370; J2405; J2543; J2704; J3010; J3370; J3480; J3490; J7030; J7060; P9016